=== PATIENT | male | born 1940 | race Caucasian/White ===

== ENCOUNTER 2016-09-18 06:42 | Day surgery (SDC) | payer MEDICARE, OTHER ==
[~2016-09-18] VITALS: Ht 167.6 cm; Wt 95.7 kg
[~2016-09-18 06:42] MED LIST: APLI5INJ2; ASPI-110 PO; B12-1CHW CHEW; BUME1TAB26 PO; CARV6.252 PO; ISOS30TA3 PO; LANS30CA PO; LANTINJ SQ; LEVO.05 PO; METO5TAB3 PO; MULT-135 PO; NOVOLOGSS SQ; OCEA0.653 EACH NARE; PLAV75TA29 PO; VITA100018 PO
[2016-09-18] MEDS ORDERED: SODIUM CHLORIDE 0.9% FLUSH 5 ML FLUSH IV FLUSH PRN (07:00)
[2016-09-18] MEDS ORDERED: DO NOT GIVE AM GLUCOPHAGE, GLUCOPHAGE XR, GLIPIZIDE, GLYBURIDE OR AVANDAMET XX PRN (07:00)
[2016-09-18] MEDS ORDERED: SODIUM BICARBONATE 100 MEQ in D5W 1000 ML IV SCH (07:00)
[2016-09-18 07:17] VITALS: BP 146/72; PULSE 56; RESP 18; TEMP 97.8; O2SAT 100
[2016-09-18] MEDS ORDERED: ROSU40 PO (07:31)
[2016-09-18] MEDS ORDERED: GARL1CAP PO (07:31)
[2016-09-18] MEDS ORDERED: VASO10TA8 PO (07:31)
[2016-09-18] MEDS ORDERED: AMAR4TAB PO (07:31)
[2016-09-18 07:33] LABS: AUTOMATED NEUTROPHIL # 4.4 TH/MM3 (1.8-7.7); BASOPHIL % 0.5 % (0.0-2.0); EOSINOPHIL # 0.5 TH/MM3 (0-0.4); EOSINOPHIL % 6.9 % (0.0-4.0); HEMATOCRIT 26.5 % (39.0-51.0); HEMO FLAGS DIFF FINAL; LYMPH % 18.4 % (9.0-44.0); LYMPHOCYTE # 1.3 TH/MM3 (1.0-4.8); MEAN CELL VOLUME 95.7 FL (80.0-100.0); MEAN CORPUSCULAR HEMOGLOBIN 33.4 PG (27.0-34.0); MEAN CORPUSCULAR HGB CONC 34.9 % (32.0-36.0); MONO % 12.9 % (0.0-8.0); NEUT % 61.3 % (16.0-70.0); PLATELET COUNT 232 TH/MM3 (150-450); RED BLOOD COUNT 2.77 MIL/MM3 (4.50-5.90); RED CELL DISTRIBUTION WIDTH 15.2 % (11.6-17.2); WHITE BLOOD COUNT 7.1 TH/MM3 (4.0-11.0)
[2016-09-18 07:43] LABS: APTT (PATIENT) 24.6 SEC (24.3-30.1); PROTHROMBIN TIME - PATIENT 10.7 SEC (9.8-11.6)
[2016-09-18 07:47] LABS: BICARBONATE 23.2 MEQ/L (21.0-32.0); POTASSIUM 4.2 MEQ/L (3.5-5.1)
[2016-09-18] MEDS ORDERED: HEPARIN-NS/PF INJ 500 ML ONE (08:42)
[2016-09-18] MEDS ORDERED: MIDAZOLAM HCL 5 MG/5 ML VIAL ONE (08:47)
[2016-09-18] MEDS ORDERED: HEPARIN SODIUM - IV 10,000 UNITS/10 ML VIAL ONE (08:52)
[2016-09-18] MEDS ORDERED: SODIUM CHLORIDE 0.9% FLUSH 5 ML FLUSH IV FLUSH SCH (09:00)
[2016-09-18] MEDS ORDERED: IOHEXOL 350 MG/ML 100 ML BTL (for Cath Lab) OTHER ONE (10:00)
--- NOTE | 2016-09-18 10:13 | PD.VS.PN ---
Subjective Subjective/Hospital Course 76 year old diabetic male with wound left lower extremity. Objective Vitals/I&O Date Time Temp Pulse Resp B/P Pulse Ox O2 Delivery O2 Flow Rate FiO2 09/18/16 07:17 97.8 56 18 146/72 100 09/18/16 09/18/16 09/18/16 07:00 15:00 23:00 Output Total 200 ml Balance -200 ml Laboratory Laboratory Tests Test 09/18/16 07:20 White Blood Count 7.1 Red Blood Count 2.77 Hemoglobin 9.3 Hematocrit 26.5 Mean Corpuscular Volume 95.7 Mean Corpuscular Hemoglobin 33.4 Mean Corpuscular Hemoglobin 34.9 Concent Red Cell Distribution Width 15.2 Platelet Count 232 Mean Platelet Volume 8.8 Neutrophils (%) (Auto) 61.3 Lymphocytes (%) (Auto) 18.4 Monocytes (%) (Auto) 12.9 Eosinophils (%) (Auto) 6.9 Basophils (%) (Auto) 0.5 Neutrophils # (Auto) 4.4 Lymphocytes # (Auto) 1.3 Monocytes # (Auto) 0.9 Eosinophils # (Auto) 0.5 Basophils # (Auto) 0.0 CBC Comment DIFF FINAL Differential Comment Prothrombin Time 10.7 Prothromb Time International 1.0 Ratio Activated Partial 24.6 Thromboplast Time Sodium Level 140 Potassium Level 4.2 Chloride Level 107 Carbon Dioxide Level 23.2 Anion Gap 10 Blood Urea Nitrogen 28 Creatinine 1.76 Estimat Glomerular Filtration 38 Rate Random Glucose 202 Calcium Level 8.5 Assessment and Plan Assessment: (1) Type 2 diabetes mellitus with diabetic peripheral angiopathy without gangrene Status: Chronic Plan 76 year old diabetic male with diabetic wound left lower extremity. Hx of right great toe amp healed with wound care and after percutaneous intervention. Left lower extremity angiogram - left sfa disease in area of [place] with high grade short segment popliteal artery lesion with main runoff via peroneal artery. Plan for vein mapping for possible fem below knee bypass. Royce De La Vega DO Sep 18, 2016 10:13
[2016-09-18] MEDS ORDERED: LORazepam 2 MG/ML VIAL IVP PRN (11:30)
[2016-09-18] MEDS ORDERED: SODIUM CHLORIDE 0.9% 1000 ML @ 75 ML/HR IV SCH (11:30)
[2016-09-18] MEDS ORDERED: SODIUM CHLOR 0.9% 250 ML IV PRN (11:30)
[2016-09-18] MEDS ORDERED: ONDANSETRON HCL 4 MG/2 ML VIAL IV PRN (11:30)
[2016-09-18] MEDS ORDERED: POTASSIUM CHLORIDE 20 MEQ CONTROLLED RELEASE TAB PO PRN (11:30)
[2016-09-18] MEDS ORDERED: SODIUM NITROPRUSSIDE 50 MG/250 ML D5W IV SCH ×2 (11:30)
[2016-09-18] MEDS ORDERED: cloNIDine HCL 0.1 MG TAB PO PRN (11:30)
[2016-09-18] MEDS ORDERED: ENALAPRILAT 1.25 MG/ML VIAL IV PRN (11:30)
[2016-09-18] MEDS ORDERED: METOCLOPRAMIDE HCL 10 MG/2 ML VIAL IVS PRN (11:30)
[2016-09-18] MEDS ORDERED: LIDOCAINE HCL 1% 50 ML VIAL INFIL PRN (11:30)
[2016-09-18] MEDS ORDERED: HOLD GLUCOPHAGE, GLUCOPHAGE XR, AND AVANDAMET XX PRN (11:30)
[2016-09-18] MEDS ORDERED: SODIUM CHLORIDE 5 ML FLUSH PRN IVF (11:30)
[2016-09-18] MEDS ORDERED: LABETALOL HCL 100 MG/20 ML VIAL IVP PRN (11:30)
[2016-09-18] MEDS ORDERED: oxyCODONE/ACETAMINOPHEN 5 MG/325 MG TAB PO PRN ×2 (11:30)
[2016-09-18] MEDS ORDERED: ATROPINE SULFATE 1 MG/ML VIAL IV PUSH PRN (11:30)
--- NOTE | 2016-09-18 12:43 | MA ---
cc: MEHRDAD ALFARO Cardiac Catheterization Laboratory DATE: 09/18/2016 PREOPERATIVE DIAGNOSIS Non-healing ulcer, left lower extremity. POSTOPERATIVE DIAGNOSIS Non-healing ulcer, left lower extremity. PROCEDURE 1. Aortogram and selective left lower extremity arteriogram. 2. Duplex ultrasound for access. DETAILS OF PROCEDURE The patient's right groin was prepped and draped in a sterile fashion after being under moderate sedation. I got access to the right common femoral artery using duplex ultrasound. I used a 21-gauge needle to do this and then exchanged for a 4-Mauritian micropuncture catheter. Then I exchanged for a 5-Mauritian sheath over a [employer] wire. I advanced my Omni Flush catheter over a Stiff Angle Glidewire to the abdominal aorta. I shot an AP aortogram then I pulled my catheter down into the distal abdominal aorta and shot pelvic oblique arteriograms. I then selected out the left external iliac artery and shot a selective left lower extremity arteriogram. After I finished shooting my left lower extremity arteriogram I advanced a wire through the catheter and pulled my catheter out over a wire. I then shot a sheathogram through the right groin. My findings were that the abdominal aorta was widely patent. The bilateral renal arteries were patent. The right common, internal and external iliac arteries were widely patent. The right common, femoral and profunda femoral arteries were patent. The right superficial femoral artery proximally was patent with minimal disease. Also, in the right common femoral artery there was some mild disease. The left common, internal and external iliac arteries were widely patent. The left common femoral artery had extensive calcification at the takeoff of the SFA and profunda. The left profunda femoral artery appeared to be widely patent. The left superficial femoral artery had calcification and had at least mild disease in the left SFA in the area of Tim's canal with areas of calcification. The left popliteal artery had multifocal disease and at the above-knee popliteal there was a severe stenosis at an area of eccentric calcification. The below knee popliteal appeared to be patent with minimal disease. The left anterior tibial artery occluded right after its takeoff. The patient had two-vessel runoff through the left peroneal and posterior tibial arteries, although the posterior tibial artery was smaller in diameter and distally was questionably open. The left peroneal artery reconstituted the dorsalis pedis artery in the foot. The medial and lateral plantar arteries were difficult to identify. So in summary, the patient had what appeared to be mild to moderate disease of the left superficial femoral artery and nearly occlusive versus chronic total occlusion of the left popliteal artery with the majority of the runoff through the left peroneal artery giving rise to the dorsalis pedis artery in the foot. DO RENÉ Sanchez /9:55 AM /12:28 PM
[2016-09-18] MEDS ORDERED: SODIUM CHLORIDE 5 ML FLUSH BID IVF SCH (21:00)
[2016-09-19] MEDS ORDERED: ASPIRIN EC 81 MG TABEC PO SCH (09:00)
[2016-10-11] MEDS ORDERED: POTA1TAB4 PO (12:58)
[2016-10-11] MEDS ORDERED: PLAV75TA29 PO (12:58)
[2016-11-08] MEDS ORDERED: AUGM500T7 PO (11:39)
[2016-11-22] MEDS ORDERED: PROC20005 SQ (11:27)
[2016-11-29] MEDS ORDERED: BACT800T5 PO (11:24)
[2016-12-20] MEDS ORDERED: AUGM875T PO (11:05)
[2016-12-20] MEDS ORDERED: BACT800T5 PO (11:05)
[2017-01-10] MEDS ORDERED: AUGM875T PO (11:31)
[2017-01-10] MEDS ORDERED: BACT800T5 PO (11:31)
== END 2016-09-18 14:58 | disposition home or self-care (01) ==
LOC: HDOC 06:42 → HDIC 06:46 → HDOC 14:58
PROVIDERS: ATTEND Surgery
DX: I73.9 Peripheral vascular disease, unspecified (principal); L97.929 Non-pressure chronic ulcer of unspecified part of left lower leg with unspecified severity; E11.51 Type 2 diabetes mellitus with diabetic peripheral angiopathy without gangrene; I25.10 Atherosclerotic heart disease of native coronary artery without angina pectoris; Z79.01 Long term (current) use of anticoagulants
CPT/HCPCS: 36200; 36246; 75625; 75710; 80048; 85025; 85610; 85730; C1769; C1893; J1644; J2250; J3010; J7070; Q9967

== ENCOUNTER 2016-10-12 08:03 | Day surgery (SDC) | payer MEDICARE, OTHER ==
[~2016-10-12] VITALS: Ht 170.2 cm; Wt 96.5 kg
[~2016-10-12 08:03] MED LIST changes: +AMAR4TAB PO; -APLI5INJ2; -B12-1CHW CHEW; +GARL1CAP PO; -METO5TAB3 PO; -OCEA0.653 EACH NARE; +POTA1TAB4 PO; +ROSU40 PO; -VITA100018 PO
[2016-10-12] MEDS ORDERED: HEPARIN SODIUM - SQ 10,000 UNITS/ML VIAL ONE (08:38)
[2016-10-12] MEDS ORDERED: ceFAZolin 2 GM PREMIX 50 ML ONE (08:39)
[2016-10-12] MEDS ORDERED: BUPIVACAINE/EPINEPHRINE 0.25% PF 30 ML VIAL ONE (08:40)
[2016-10-12 08:52] VITALS: BP 170/65; PULSE 56; RESP 16; TEMP 97.9; O2SAT 99
[2016-10-12 09:19] LABS: AUTOMATED NEUTROPHIL # 6.5 TH/MM3 (1.8-7.7); BASOPHIL % 0.5 % (0.0-2.0); EOSINOPHIL # 0.2 TH/MM3 (0-0.4); EOSINOPHIL % 1.8 % (0.0-4.0); HEMATOCRIT 25.3 % (39.0-51.0); HEMO FLAGS DIFF FINAL; LYMPH % 10.6 % (9.0-44.0); LYMPHOCYTE # 0.9 TH/MM3 (1.0-4.8); MEAN CELL VOLUME 94.8 FL (80.0-100.0); MEAN CORPUSCULAR HEMOGLOBIN 32.7 PG (27.0-34.0); MEAN CORPUSCULAR HGB CONC 34.5 % (32.0-36.0); MONO % 12.5 % (0.0-8.0); NEUT % 74.6 % (16.0-70.0); PLATELET COUNT 346 TH/MM3 (150-450); RED BLOOD COUNT 2.66 MIL/MM3 (4.50-5.90); RED CELL DISTRIBUTION WIDTH 15.7 % (11.6-17.2); WHITE BLOOD COUNT 8.7 TH/MM3 (4.0-11.0)
[2016-10-12] MEDS ORDERED: METOPROLOL TARTRATE 25 MG TAB PO PRN (10:15)
[2016-10-12] MEDS ORDERED: INSULIN HUMAN REGULAR 1,000 UNITS/10 ML VIAL SQ PRN (10:15)
[2016-10-12 10:53] LABS: BICARBONATE 23.1 MEQ/L (21.0-32.0); POTASSIUM 4.2 MEQ/L (3.5-5.1)
[2016-10-12] MEDS ORDERED: SODIUM CHLORID 0.9% 500 ML IV SCH (11:00)
[2016-10-12] MEDS ORDERED: LACTATED RINGER'S 1000 ML IV SCH (11:00)
[2016-10-12] MEDS ORDERED: HEPARIN SODIUM - IV 10,000 UNITS/10 ML VIAL ONE (11:07)
[2016-10-12] MEDS ORDERED: NITROGLYCERIN-DEXTROSE INJ 250 ML ONE (11:30)
[2016-10-12] MEDS ORDERED: ADENOSINE IV SOLN 3 MG/ML 2 ML VIAL ONE (11:58)
[2016-10-12] MEDS ORDERED: ONDANSETRON HCL 4 MG/2 ML VIAL IV PUSH ONE (12:00)
[2016-10-12] MEDS ORDERED: ePHEDrine/NS 25 MG/5 ML SYR IV ONE (12:00)
[2016-10-12] MEDS ORDERED: PROPOFOL 200 MG/20 ML AMP IV ONE (12:00)
[2016-10-12] MEDS ORDERED: LACTATED RINGER'S 1000 ML INJ 1,000 ML IV ONE (12:00)
[2016-10-12] MEDS ORDERED: SUGAMMADEX SODIUM 200 MG/2 ML VIAL IV PUSH ONE ×2 (13:27)
[2016-10-12] MEDS ORDERED: ALTEPLASE RECOMBINANT 2 MG VIAL OTHER ONE (13:29)
[2016-10-12] MEDS ORDERED: NITROGLYCERIN 50 MG/10 ML VIAL XX ONE (13:29)
[2016-10-12] MEDS ORDERED: IOHEXOL 300 MG/ML 50 ML BTL (for RAD DIAG) OTHER ONE (13:29)
[2016-10-12] MEDS ORDERED: [UNRECOGNIZED DRUG - MIXTURE] ONE (14:00)
[2016-10-12] MEDS ORDERED: MIDAZOLAM HCL 2 MG/2 ML VIAL ONE (14:16)
[2016-10-12] MEDS ORDERED: fentaNYL CITRATE 250 MCG/5 ML AMP ONE (14:17)
[2016-10-12] MEDS ORDERED: SODIUM CHLORIDE 0.9% FLUSH 5 ML FLUSH IV FLUSH PRN (15:30)
[2016-10-12] MEDS ORDERED: ONDANSETRON HCL 4 MG/2 ML VIAL IV PUSH PRN (15:30)
[2016-10-12] MEDS ORDERED: ACETAMINOPHEN/HYDROcodone 325 MG/5 MG TAB PO PRN (15:30)
[2016-10-12] MEDS ORDERED: MORPHINE SULFATE 4 MG/ML INJ IV PRN (15:30)
--- NOTE | 2016-10-12 15:35 | MA ---
cc: MEHRDAD ALFARO DATE: 10/12/2016 PREOPERATIVE DIAGNOSIS Critical limb ischemia, left lower extremity. POSTOPERATIVE DIAGNOSIS Critical limb ischemia, left lower extremity. PROCEDURE 1. Selective left lower extremity arteriogram. 2. Atherectomy and balloon angioplasty left superficial femoral artery and popliteal artery with a 2.0 solid CSI atherectomy device and an 5 x 200 Medtronic angioplasty balloon of the left SFA and popliteal. 3. Balloon angioplasty with a 3 x 40 angioplasty balloon of the left proximal peroneal artery. SURGEON Yolette IV FLUIDS More than one liter. ESTIMATED BLOOD LOSS Minimal. URINE OUTPUT 500 cc. COMPLICATIONS None. DISPOSITION To PACU. ANESTHESIA General. DETAILS OF PROCEDURE The patient's was prepped and draped from xiphoid process to the toes bilaterally. I got access to the right common femoral artery using duplex ultrasound with a 21-gauge needle. I exchanged for a 4-British micropuncture catheter then a 4-British catheter, and then exchanged over a stiff angled Glidewire for a Omni Flush catheter which I directed to the left common iliac artery. I then and advanced my wire down to the SFA and exchanged for a 6-British, 45 cm Destination sheath. I then shot a selective left lower extremity arteriogram. I also used IVUS in order to appropriately identify the diameter of the left popliteal artery which was just short of 5 mm. I did cross the left popliteal artery with a Quick-Cross catheter and a stiff angled Glidewire. IVUS showed that this area was almost completely occlusive. My findings were that the left superficial femoral artery proximally appeared to be patent. The left distal SFA and Tim's canal had eccentric calcifications with at least moderate stenoses. The left popliteal artery had a high-grade stenosis at the level of the knee with a mild to moderate stenosis just distal to this with essentially a single-vessel runoff through the peroneal artery that gave rise to the dorsalis pedis artery. I did heparinize the patient to an ACT of greater than 300. I then performed atherectomy with two passes at the low and high speeds with the CSI atherectomy device. I did use nitroglycerin and adenosine as needed as I did my atherectomy over a Viper wire. After performing atherectomy I used a 5 x 200 balloon angioplasty and then afterwards there was still some sluggish flow. I was unsure if this was a problem with the lesion itself or outflow. I did use nitroglycerin and adenosine and approximately 6 mg of TPA total during the procedure. There was what appeared to be flow-limiting lesion of the proximal peroneal artery. I performed a balloon angioplasty with a 3 mm x 4 cm balloon. Afterwards there was good flow distal to this and this eccentric lesion was gone. I then performed another balloon angioplasty with a 5 mm x 4 cm balloon just to the level of the popliteal artery where there appeared to be possibly a flow-limiting dissection flap. After I did this, this was no longer flow-limiting and there was good flow across the level of the popliteal artery. It should be noted that at the end of the case there was good blood flow across the level of the ankle through the dorsalis pedis artery. It should be noted that the distal peroneal artery as prior to the procedure had a chronic total occlusion and fed collaterally distally. So in summary the patient had a high-grade stenosis of the left popliteal artery and multiple areas of the SFA that were treated with atherectomy and balloon angioplasty. The patient also had a moderate to severe calcified lesion of the proximal peroneal artery that was treated with balloon angioplasty as well. DO RENÉ Sanchez /3:04 PM /3:17 PM
[2016-10-12 16:21] VITALS: BP 154/70; PULSE 59; RESP 16; TEMP 97.6; O2SAT 97
[2016-10-12] MEDS ORDERED: SODIUM CHLORIDE 0.9% FLUSH 5 ML FLUSH IV FLUSH SCH (21:00)
[2016-11-08] MEDS ORDERED: AUGM500T7 PO (11:39)
[2016-11-22] MEDS ORDERED: PROC20005 SQ (11:27)
[2016-11-29] MEDS ORDERED: BACT800T5 PO (11:24)
[2016-12-20] MEDS ORDERED: BACT800T5 PO (11:05)
[2016-12-20] MEDS ORDERED: AUGM875T PO (11:05)
[2017-01-10] MEDS ORDERED: BACT800T5 PO (11:31)
[2017-01-10] MEDS ORDERED: AUGM875T PO (11:31)
== END 2016-10-12 17:00 | disposition home or self-care (01) ==
LOC: HSDC 08:03
PROVIDERS: ATTEND Surgery
DX: I70.212 Atherosclerosis of native arteries of extremities with intermittent claudication, left leg (principal); I25.10 Atherosclerotic heart disease of native coronary artery without angina pectoris; I10 Essential (primary) hypertension; E78.5 Hyperlipidemia, unspecified; E11.9 Type 2 diabetes mellitus without complications; Z95.1 Presence of aortocoronary bypass graft; Z79.4 Long term (current) use of insulin
CPT/HCPCS: 01270; 37227; 37228; 75630; 80048; 82948; 85025; C1725; C1769; C1887; J0153; J0690; J1644; J2250; J2405; J2997; J3010; J7120; Q9967

== ENCOUNTER 2016-11-01 12:57 | Inpatient (IN) | payer MEDICARE, OTHER ==
[~2016-11-01] VITALS: Ht 170.2 cm; Wt 98.3 kg
[2016-11-01 13:00] VITALS: BP 126/58; PULSE 66; RESP 16; TEMP 98.1; O2SAT 98
--- NOTE | 2016-11-01 15:57 | PD ---
HPI Chief Complaint: Skin Problem Time Seen by Provider: 15:57 Travel History International Travel<30 days: No Contact w/Intl Traveler<30days: No Traveled to known affect area: No History of Present Illness HPI 76-year-old male with history of diabetes, CAD, CABG 3, hypertension, CKD, PAD , chronic foot wounds, presents to emergency department for evaluation and admission per Dr. Bang, inspector fibrous wallboard. Patient has been being followed by wound clinic for a wound to his left foot for "several months." It has worsened and is very painful for the patient. There is a malodorous drainage from it. Per Dr. Bang note, the patient is to be admitted [facility]. He requests lab work and radiographs of left foot. The plan is for surgical excision of the first metatarsal bone versus amputation of the left hallux. Patient states besides the pain in his foot he has been feeling "okay." Denies fever or chills. No chest pain or tightness. No nausea, vomiting , or diarrhea. No other symptoms to report. PFSH Past Medical History Hx Anticoagulant Therapy: Yes Arthritis: Yes (FINGERS) Autoimmune Disease: No Cancer: No Cardiovascular Problems: Yes (CABG X3 2009) High Cholesterol: Yes Chest Pain: No Cerebrovascular Accident: No Diabetes: Yes Endocrine: No Gastrointestinal Disorders: No Glaucoma: No Genitourinary: No Hepatitis: No Hiatal Hernia: No Hypertension: Yes Immune Disorder: No Kidney Stones: Yes Musculoskeletal: Yes (ARTHRITIS) Neurologic: No Psychiatric: No Reproductive: No Respiratory: No Integumentary: Yes Migraines: No Renal Failure: Yes (chronic) Seizures: No Sickle Cell Disease: No Thyroid Disease: Yes Past Surgical History AICD: No Arteriovenous Shunt: No Cardiac Surgery: Yes (CABG X3) Eye Surgery: Yes (CATARACT RIGHT EYE) Insulin Pump: No Joint Replacement: No Pacemaker: No Thoracic Surgery: Yes Tonsillectomy: Yes Other Surgery: Yes (r carpal tunnel) Social History Alcohol Use: Yes (occ) Tobacco Use: No Substance Use: No Allergies-Medications (Allergen,Severity, Reaction): Coded Allergies: No Known Allergies (Unverified , 11/01/16) Reported Meds & Prescriptions Reported Meds & Active Scripts Active Bumex (Bumetanide) 1 Mg Tab 1 Mg PO DAILY Reported K-Tab (Potassium Chloride) 20 Meq Tab 20 Meq PO DAILY Plavix (Clopidogrel Bisulfate) 75 Mg Tab 75 Mg PO DAILY Garlic 1,000 Mg Cap 1,000 Mg PO DAILY Amaryl (Glimepiride) 4 Mg Tab 4 Mg PO DAILY Take with breakfast or first main meal Crestor (Rosuvastatin Calcium) 40 Mg Tab 40 Mg PO DAILY Isosorbide Mononitrate ER (Isosorbide Mononitrate) 30 Mg Kimo 30 Mg PO DAILY Aspirin 81 (Aspirin) 81 Mg Tabdr 81 Mg PO DAILY Carvedilol 6.25 Mg Tab 6.25 Mg PO BID Lantus Solostar Pen Inj (Insulin Glargine) 300 Unit/3 Ml Pen 25 Units SQ HS Multi Vitamin (Multiple Vitamin) 1 Tab Tab 1 Tab PO DAILY Novolog Inj (Insulin Aspart) 100 Unit/Ml Inj 7 Units SQ TID Synthroid (Levothyroxine Sodium) 50 Mcg Tab 50 Mcg PO DAILY Lansoprazole 30 Mg Capdr 30 Mg PO DAILY Review of Systems Except as stated in HPI: all other systems reviewed are Neg Physical Exam Narrative GENERAL: Chronically ill, but well nourished elderly male pt sitting in the stretcher in no acute distress. SKIN: Warm and dry.3cm in diameter wound on the medial LEFT hallux with necrotic tissue and malodorous purulent drainage. There is a 1 cm in diameter wound on the lateral right foot. There is also purulent drainage from this. Patient has right great toe amputation. HEAD: Atraumatic. Normocephalic. EYES: Pupils equal and round. No scleral icterus. No injection or drainage. ENT: No nasal bleeding or discharge. Mucous membranes pink and moist. NECK: Trachea midline. No JVD. CARDIOVASCULAR: Regular rate and rhythm. RESPIRATORY: No accessory muscle use. Diminished to auscultation. Breath sounds equal bilaterally. GASTROINTESTINAL: Abdomen soft, non-tender, nondistended. Hepatic and splenic margins not palpable. MUSCULOSKELETAL: Extremities without clubbing, cyanosis, or edema. Distal pulses are dopplerable. Bilateral feet are warm. NEUROLOGICAL: Awake and alert. No obvious cranial nerve deficits. Motor grossly within normal limits. Five out of 5 muscle strength in the arms and legs. Normal speech. PSYCHIATRIC: Appropriate mood and affect; insight and judgment normal. Data Data Last Documented VS Vital Signs Date Time Temp Pulse Resp B/P Pulse Ox O2 Delivery O2 Flow Rate FiO2 11/01/16 16:30 72 18 198/86 97 Room Air 11/01/16 13:00 98.1 Orders Electrocardiogram (11/01/16 15:57) Complete Blood Count With Diff (11/01/16 15:57) Comprehensive Metabolic Panel (11/01/16 15:57) Prothrombin Time / Inr (Pt) (11/01/16 15:57) Act Partial Throm Time (Ptt) (11/01/16 15:57) Urinalysis - C+S If Indicated (11/01/16 15:57) Blood Culture (11/01/16 15:57) Chest, Single Ap (11/01/16 15:57) Blood Glucose (11/01/16 15:57) Ecg Monitoring (11/01/16 15:57) Iv Access Insert/Monitor (11/01/16 15:57) Oximetry (11/01/16 15:57) Oxygen Administration (11/01/16 15:57) Foot, Complete ([id number]) (11/01/16 ) Wound Culture And Gram Stain (11/01/16 16:34) Urine Culture (11/01/16 16:35) Labs Laboratory Tests Test 11/01/16 16:35 White Blood Count 11.5 TH/MM3 Red Blood Count 2.96 MIL/MM3 Hemoglobin 9.0 GM/DL Hematocrit 27.6 % Mean Corpuscular Volume 93.5 FL Mean Corpuscular Hemoglobin 30.5 PG Mean Corpuscular Hemoglobin 32.7 % Concent Red Cell Distribution Width 16.0 % Platelet Count 477 TH/MM3 Mean Platelet Volume 8.4 FL Neutrophils (%) (Auto) 72.1 % Lymphocytes (%) (Auto) 13.8 % Monocytes (%) (Auto) 11.8 % Eosinophils (%) (Auto) 1.8 % Basophils (%) (Auto) 0.5 % Neutrophils # (Auto) 8.3 TH/MM3 Lymphocytes # (Auto) 1.6 TH/MM3 Monocytes # (Auto) 1.4 TH/MM3 Eosinophils # (Auto) 0.2 TH/MM3 Basophils # (Auto) 0.1 TH/MM3 CBC Comment DIFF FINAL Differential Comment Prothrombin Time 11.3 SEC Prothromb Time International 1.0 RATIO Ratio Activated Partial 28.4 SEC Thromboplast Time Urine Color YELLOW Urine Turbidity CLEAR Urine pH 6.0 Urine Specific Frost 1.017 Urine Protein 30 mg/dL Urine Glucose (UA) NEG mg/dL Urine Ketones NEG mg/dL Urine Occult Blood MOD Urine Nitrite NEG Urine Bilirubin NEG Urine Urobilinogen LESS THAN 2.0 MG/DL Urine Leukocyte Esterase SMALL Urine RBC 142 /hpf Urine WBC 20 /hpf Urine Squamous Epithelial <1 /hpf Cells Urine Bacteria OCC /hpf Urine Mucus FEW /lpf Microscopic Urinalysis Comment CATH-CULTURE IND Sodium Level 139 MEQ/L Potassium Level 4.5 MEQ/L Chloride Level 107 MEQ/L Carbon Dioxide Level 25.5 MEQ/L Anion Gap 7 MEQ/L Blood Urea Nitrogen 22 MG/DL Creatinine 1.84 MG/DL Estimat Glomerular Filtration 36 ML/MIN Rate Random Glucose 136 MG/DL Calcium Level 9.4 MG/DL Total Bilirubin 0.3 MG/DL Aspartate Amino Transf 12 U/L (AST/SGOT) Alanine Aminotransferase 16 U/L (ALT/SGPT) Alkaline Phosphatase 159 U/L Total Protein 7.7 GM/DL Albumin 2.7 GM/DL MDM Medical Decision Making Medical Screen Exam Complete: Yes Emergency Medical Condition: Yes Medical Record Reviewed: Yes Differential Diagnosis Infected wound versus necrotic wound versus osteomyelitis versus sepsis Narrative Course 76-year-old male presents to emergency department at the instruction of Dr. Bang. Labs per Dr. Bang's notes are ordered. X-ray imaging of the left foot is also ordered. Last Impressions Chest X-Ray 11/01/16 1557 Signed Impressions: Service Date/Time: October 16:20 - CONCLUSION: 1. No active disease. Minimal basilar scarring and atelectasis. Donald Sanderson MD Foot X-Ray 11/01/16 0000 Signed Impressions: Service Date/Time: October 16:20 - CONCLUSION: 1. Abnormal distal first metatarsal and proximal phalanx of the first digit with under mineralization and areas of lucency. Although nonspecific osteomyelitis could have this appearance. 2. There is dislocation versus subluxation at the first MTP joint. There is questionable fracture involving the proximal aspect of the proximal phalanx of the first digit. 3. Diffuse left foot soft tissue swelling. Small vessel arterial vascular calcification in a pattern typically seen in diabetic patients. Van Hartley MD I spoke with Dr. Gutierrez. He requests pt be given unasyn and vancomycin here in the ED with admission to Dr. Dunlap. A consult has also been placed for Dr. Bang and wound care. Diagnosis Primary Impression: Osteomyelitis of left foot Qualified Code: M86.9 - Osteomyelitis of left foot, unspecified type Additional Impressions: Ischemic ulcer diabetic foot CAD (coronary artery disease) Qualified Code: I25.10 - Coronary artery disease involving [place] heart without angina pectoris, unspecified vessel or lesion type HTN (hypertension) Qualified Code: I10 - Essential hypertension Diabetes Qualified Code: E11.59 - Type 2 diabetes mellitus with other circulatory complication, with long-term current use of insulin Admitting Information Admitting Physician Requests: Admit Condition: Stable NiceEdith buck MARIA TERESA Nov 01, 2016 15:57
[2016-11-01 16:29] VITALS: O2SAT 97
[2016-11-01 16:30] VITALS: BP 198/86; PULSE 72; RESP 18; O2SAT 97
--- NOTE | 2016-11-01 16:32 | PD ---
Data Data Last Documented VS Vital Signs Date Time Temp Pulse Resp B/P Pulse Ox O2 Delivery O2 Flow Rate FiO2 11/01/16 16:29 97 Room Air 11/01/16 13:00 98.1 66 16 126/58 Orders Electrocardiogram (11/01/16 15:57) Complete Blood Count With Diff (11/01/16 15:57) Comprehensive Metabolic Panel (11/01/16 15:57) Prothrombin Time / Inr (Pt) (11/01/16 15:57) Act Partial Throm Time (Ptt) (11/01/16 15:57) Urinalysis - C+S If Indicated (11/01/16 15:57) Blood Culture (11/01/16 15:57) Chest, Single Ap (11/01/16 15:57) Blood Glucose (11/01/16 15:57) Ecg Monitoring (11/01/16 15:57) Iv Access Insert/Monitor (11/01/16 15:57) Oximetry (11/01/16 15:57) Oxygen Administration (11/01/16 15:57) Foot, Complete ([id number]) (11/01/16 ) MDM Supervised Visit with SANDEE: Yes Narrative Course I, Dr. Barnett, have reviewed the advance practice practitioner's documentation and am in agreement, met with the patient face to face, made the diagnosis, and the medical decision making was done by me. *My assessment and Findings: Patient has a gangrenous appearing left foot ulcer Claudette Barnett MD Nov 01, 2016 16:32
--- NOTE | 2016-11-01 17:04 | RADRPT ---
EXAM DATE/TIME: 11/01/2016 16:20 [facility] COMPARISON: No previous studies available for comparison. INDICATIONS : Left foot chronic pain. MEDICAL HISTORY : Hypertension. Diabetes mellitus type II. SURGICAL HISTORY : CABG. ENCOUNTER: Initial ACUITY: 1 day PAIN SCORE: 5/10 LOCATION: Left foot FINDINGS: 3 views of the left foot demonstrate diffusely undermineralized bones. The bones of the first metatar rinku and first digit are particularly undermineralized. The first metatarsophalangeal joint is abnorma l with subluxation versus dislocation present and there is likely a fracture of the proximal aspect o f the proximal lateral phalanx. A there is soft tissue swelling of the first digit. Overlying bandage is adjacent to the first MTP joint. There is a diffuse soft tissue swelling of the foot is most morgan re on the dorsal aspect. Severe small vessel arterial vascular calcification is present. CONCLUSION: 1. Abnormal distal first metatarsal and proximal phalanx of the first digit with under mineralization and areas of lucency. Although nonspecific osteomyelitis could have this appearance. 2. There is dislocation versus subluxation at the first MTP joint. There is questionable fracture inv olving the proximal aspect of the proximal phalanx of the first digit. 3. Diffuse left foot soft tissue swelling. Small vessel arterial vascular calcification in a pattern typically seen in diabetic patients. Van Hartley MD on November 01, 2016 at 17:00 Board Certified Radiologist. This report was verified electronically.
[2016-11-01 17:06] LABS: AUTOMATED NEUTROPHIL # 8.3 TH/MM3 (1.8-7.7); BASOPHIL # 0.1 TH/MM3 (0-0.2); BASOPHIL % 0.5 % (0.0-2.0); EOSINOPHIL # 0.2 TH/MM3 (0-0.4); EOSINOPHIL % 1.8 % (0.0-4.0); HEMATOCRIT 27.6 % (39.0-51.0); HEMO FLAGS DIFF FINAL; LYMPH % 13.8 % (9.0-44.0); LYMPHOCYTE # 1.6 TH/MM3 (1.0-4.8); MEAN CELL VOLUME 93.5 FL (80.0-100.0); MEAN CORPUSCULAR HEMOGLOBIN 30.5 PG (27.0-34.0); MEAN CORPUSCULAR HGB CONC 32.7 % (32.0-36.0); MONO % 11.8 % (0.0-8.0); NEUT % 72.1 % (16.0-70.0); PLATELET COUNT 477 TH/MM3 (150-450); RED BLOOD COUNT 2.96 MIL/MM3 (4.50-5.90); WHITE BLOOD COUNT 11.5 TH/MM3 (4.0-11.0)
--- NOTE | 2016-11-01 17:06 | RADRPT ---
EXAM DATE/TIME: 11/01/2016 16:20 [facility] COMPARISON: CHEST SINGLE AP, July 12, 2016, 12:37. INDICATIONS : Pre OP. MEDICAL HISTORY : Hypertension. Diabetes mellitus type II. SURGICAL HISTORY : CABG. ENCOUNTER: Initial ACUITY: 1 day PAIN SCORE: 0/10 LOCATION: Bilateral chest FINDINGS: A single view of the chest demonstrates mild basilar opacity, probably dependent atelectasis and mild fibrotic change. Postop median sternotomy. Mild cardiomegaly. Tortuous aorta. CONCLUSION: 1. No active disease. Minimal basilar scarring and atelectasis. Donald Sanderson MD on November 01, 2016 at 17:04 Board Certified Radiologist. This report was verified electronically.
[2016-11-01 17:16] LABS: BACTERIA, URINE OCC /hpf; BLOOD, URINE MOD (NEG); COMMENT (UR) CATH-CULTURE IND; CULTURE IF INDICATED CATH CULTURE IND; GLUCOSE,URINE NEG (NEG); KETONE, URINE NEG (NEG); MUCUS URINE FEW /lpf (OCC); NITRITE,URINE NEG (NEG); SQUAMOUS EPITHELIAL CELL URINE <1 /hpf (0-5); URINE COLOR YELLOW (YELLW/STRAW)
[2016-11-01 17:22] LABS: APTT (PATIENT) 28.4 SEC (24.3-30.1); PROTHROMBIN TIME - PATIENT 11.3 SEC (9.8-11.6)
[2016-11-01 17:25] LABS: ANION GAP 7 MEQ/L (5-15); AST (GOT) 12 U/L (15-37); BICARBONATE 25.5 MEQ/L (21.0-32.0); BLOOD UREA NITROGEN 22 MG/DL (7-18); CHLORIDE 107 MEQ/L (98-107); GLOMERULAR FILTRATION RATE 36 ML/MIN (>89); POTASSIUM 4.5 MEQ/L (3.5-5.1); SODIUM (NA) 139 MEQ/L (136-145)
[2016-11-01 17:29] LABS: ALKALINE PHOSPHATASE 159 U/L (45-117); ALT (GPT) 16 U/L (12-78); TOTAL BILIRUBIN ADULT 0.3 MG/DL (0.2-1.0)
[2016-11-01] MEDS ORDERED: VANCOMYCIN INJ 1,000 MG in SODIUM CHLOR 0.9% 250 ML INJ 250 ML IV ONE (17:45)
[2016-11-01] MEDS ORDERED: AMPICILLIN-SULBACTAM INJ 1,500 MG in SODIUM CHLORIDE 0.9% INJ 100 ML IV ONE (17:45)
[2016-11-01 19:42] VITALS: BP 209/81; PULSE 77; RESP 18; O2SAT 96
[2016-11-01] MEDS ORDERED: GLUCAGON 1 MG/ML VIAL OTHER PRN (20:15)
[2016-11-01] MEDS ORDERED: ENALAPRILAT 1.25 MG/ML VIAL IV PUSH PRN (20:15)
[2016-11-01] MEDS ORDERED: Vancomycin Consult Pharmacy 1 EA OTHER SCH (20:15)
[2016-11-01] MEDS ORDERED: PILL SPLITTER OTHER PRN (20:30)
[2016-11-01] MEDS ORDERED: VANCOMYCIN 1,000 MG/NS 250 ML IV ONE ×2 (21:00)
[2016-11-01] MEDS: INSULIN ASPART SUPPLEMENTAL SCALE SQ SCH (21:00)
[2016-11-01] MEDS: CARVEDILOL 6.25 MG TAB PO SCH (21:23)
[2016-11-01] MEDS: ATORVASTATIN 40 MG TAB PO SCH (21:23)
[2016-11-01] MEDS: ENOXAPARIN SODIUM 40 MG/0.4 ML SYRINGE SQ SCH (21:30)
[2016-11-01] MEDS: INSULIN DETEMIR 100 UNITS/ML VIAL SQ SCH (21:30)
[2016-11-01] MEDS: FAMOTIDINE 20 MG TAB PO SCH (21:30)
[2016-11-01] MEDS: PIPERACIL-TAZO 2.25 GM PREMIX 50 ML IV SCH (22:55)
[2016-11-02 02:00] VITALS: BP 158/67; PULSE 76; RESP 16; O2SAT 97
[2016-11-02] MEDS: PIPERACIL-TAZO 2.25 GM PREMIX 50 ML IV SCH ×4 (04:39→21:27)
[2016-11-02] MEDS: LEVOTHYROXINE SODIUM 50 MCG TAB PO SCH (06:04)
[2016-11-02 06:17] LABS: MEAN CELL VOLUME 93.2 FL (80.0-100.0); MEAN CORPUSCULAR HEMOGLOBIN 30.2 PG (27.0-34.0); MEAN CORPUSCULAR HGB CONC 32.4 % (32.0-36.0); PLATELET COUNT 419 TH/MM3 (150-450); RED BLOOD COUNT 2.68 MIL/MM3 (4.50-5.90); RED CELL DISTRIBUTION WIDTH 16.1 % (11.6-17.2); REVIEW FLAG FINAL; WHITE BLOOD COUNT 11.2 TH/MM3 (4.0-11.0)
[2016-11-02 06:46] LABS: BICARBONATE 24.2 MEQ/L (21.0-32.0); POTASSIUM 4.2 MEQ/L (3.5-5.1)
[2016-11-02] MEDS: INSULIN ASPART SUPPLEMENTAL SCALE SQ SCH ×7 (07:00→21:00)
[2016-11-02 08:00] VITALS: BP 173/77; PULSE 86; RESP 17; TEMP 98.4; O2SAT 98
[2016-11-02] MEDS: GLIMEPIRIDE 4 MG TAB PO SCH (08:32)
[2016-11-02] MEDS: CARVEDILOL 6.25 MG TAB PO SCH ×2 (08:32→21:28)
[2016-11-02] MEDS: ISOSORBIDE MONONITRATE 30 MG TAB PO SCH (08:32)
[2016-11-02] MEDS: FAMOTIDINE 20 MG TAB PO SCH ×2 (08:42→21:28)
[2016-11-02] MEDS ORDERED: CLOPIDOGREL 75 MG TAB PO SCH (09:00)
[2016-11-02] MEDS ORDERED: ASPIRIN EC 81 MG TABEC PO SCH (09:00)
[2016-11-02] MEDS ORDERED: ceFAZolin 2 GM PREMIX 50 ML IV SCH (10:00)
--- NOTE | 2016-11-02 10:01 | PD.WOU.CON ---
Patient Intake Chief Complaint Osteomyelitis left first MPJ Consult [facility] by [facility] Reason for Consult Evaluation and treatment of osteomyelitis first MPJ left foot Primary Care Physician Arturo Bagley MD History of Present Illness Patient is a 76-year-old diabetic male who I see in the wound center here at [facility]. Patient had severe peripheral vascular disease and underwent endovascular intervention recently on the left lower extremity with improved blood flow. Patient has exposed bone at the first metatarsal phalangeal joint and radiographs show destruction of the joint. Patient was admitted for amputation of the left hallux. He understands the course of the planned procedures and wishes to proceed. Coded Allergies: No Known Allergies (Unverified , 11/01/16) Preferred Language to Discuss: Moldovan Barriers to Learning: None Teaching Method: Discussion Vital Signs Date Time Temp Pulse Resp B/P Pulse Ox O2 Delivery O2 Flow Rate FiO2 11/02/16 08:00 98.4 86 17 173/77 98 Room Air 11/02/16 02:00 76 16 158/67 97 Room Air 11/01/16 19:42 77 18 209/81 96 Room Air 11/01/16 16:30 72 18 198/86 97 Room Air 11/01/16 16:29 97 Room Air 11/01/16 16:29 97 Room Air 11/01/16 13:00 98.1 66 16 126/58 98 Pain scale used: 0-10 numeric scale Pain score: 1 Medications Current Medications Ampicillin Sodium/ Sulbactam Sodium 1500 mg/Sodium Chloride 100 ml @ 200 mls/ hr ONCE ONCE IV Last administered on 11/01/16 19:39; Start 11/01/16 at 17:45; Stop 11/01/16 at 18:14; Status DC Vancomycin HCl/ Sodium Chloride (Vancomycin Inj/ NS 250 ml Inj) 250 ml @ 250 mls/hr ONCE ONCE IV Last administered on 11/01/16 17:48; Start 11/01/16 at 17: 45; Stop 11/01/16 at 18:44; Status DC Aspirin (Ecotrin Ec) 81 mg DAILY PO ; Start 11/02/16 at 09:00 Carvedilol (Coreg) 6.25 mg BID PO Last administered on 11/02/16 08:32; Start 11/01/16 at 21:00 Clopidogrel Bisulfate (Plavix) 75 mg DAILY PO ; Start 11/02/16 at 09:00 Glimepiride (Amaryl) 4 mg DAILYAC PO Last administered on 11/02/16 08:32; Start 11/02/16 at 08:00 Insulin Aspart (NovoLOG SUPPLEMENTAL SCALE) 7 TIDAC SQ ; Start 11/02/16 at 08:00 Isosorbide Mononitrate (Imdur) 30 mg DAILY PO Last administered on 11/02/16 08 :32; Start 11/02/16 at 09:00 Levothyroxine Sodium (Synthroid) 50 mcg DAILY@06 PO Last administered on 06:04; Start 11/02/16 at 06:00 Insulin Detemir (Levemir Inj) 25 units HS SQ Last administered on 11/01/16 21: 30; Start 11/01/16 at 21:00 Atorvastatin Calcium 80 mg 80 mg HS PO Last administered on 11/01/16 21:23; Start 11/01/16 at 21:00 Piperacillin Sod/ Tazobactam Sod 50 ml @ 100 mls/hr Q6H IV Last administered on 11/02/16 08:32; Start 11/01/16 at 21:00 Pharmacy Profile Note (Vancomycin Consult Pharmacy) 0 ml @ 0 mls/hr UNSCH OTHER ; Start 11/01/16 at 20:15 Enalaprilat (Vasotec Inj) 2.5 mg Q6H PRN IV PUSH SBP >170; Start 11/01/16 at 20 :15 Dextrose (D50w (Vial) Inj) 25 ml UNSCH PRN IV PUSH HYPOGLYCEMIA-SEE COMMENTS; Start 11/01/16 at 20:15 Glucagon (Glucagon Inj) 1 mg UNSCH PRN OTHER HYPOGLYCEMIA-SEE COMMENTS; Start 11/01/16 at 20:15 Insulin Aspart (NovoLOG SUPPLEMENTAL SCALE) 1 ACHS SLIDING SCALE SQ ; Start 11/01/16 at 21:00 Famotidine (Pepcid) 10 mg BID PO Last administered on 11/02/16 08:42; Start at 21:00 Enoxaparin Sodium 40 mg 40 mg Q24H SQ Last administered on 11/01/16 21:30; Start 11/01/16 at 21:00 Vancomycin HCl/ Sodium Chloride (Vancomycin Inj/ NS 250 ml Inj) 250 ml @ 250 mls/hr ONCE ONCE IV Last administered on 11/01/16t 21:23; Start 11/01/16 at 21: 00; Stop 11/01/16 at 21:59; Status DC Miscellaneous 1 ea 1 ea UNSCH PRN OTHER SEE LABEL COMMENTS; Start 11/01/16 at 20 :30 Vancomycin HCl/ Sodium Chloride (Vancomycin Inj/ NS 500 ml Inj) 515 ml @ 257.5 mls/ hr Q24H IV ; Start 11/02/16 at 15:00 Miscellaneous Information SPECIFIC LAB TO BE ... ONCE ONCE XX ; Start at 14:45; Stop 11/04/16 at 14:46 Past, Family & Social History Past Medical History HEENT: REPORTS HX OF: Cataracts Endocrine: REPORTS HX OF: Diabetes mellitus, Hyperthyroidism Cardiovascular: REPORTS HX OF: Coronary artery disease, Heart failure, Hyperlipidemia, Hypertension, Peripheral vascular dz Genitourinary: REPORTS HX OF: Kidney disease, Kidney failure Musculoskeletal: REPORTS HX OF: Osteoarthritis Infectious disease: REPORTS HX OF: Chickenpox (had as a child), Measles (had as a child), Mumps (had as a child) Neurologic: REPORTS HX OF: Peripheral neuropathy Disabilities: REPORTS HX OF: Hearing deficit, Vision deficit Past Surgical History HEENT: REPORTS HX OF: Cataract extraction, Dental surgery (upper dentures and partial on the bottom), Tonsillectomy Cardiovascular: REPORTS HX OF: Angiogram, Angioplasty, CABG surgery Musculoskeletal: REPORTS HX OF: Other musculoskeletal srg (partial amputation second and third toes right foot, amputation right hallu) Family Medical History Patient History: Alcohol abuse G8 BROTHER, Onset:Unknown ( at 60) Carcinomas G8 MOTHER, Onset:40's - 50 Substance Use Substance use: Denies use Review of Systems Cardiovascular: COMPLAINS OF: Swelling legs / ankles Musculoskeletal: COMPLAINS OF: Deformaties Neurological: COMPLAINS OF: Numbness/tingling, Changes in sensation Wound Assessment Vascular Assessment R Dorsails Pedis: Doppler L Dorsails Pedis: Doppler R Posterior Tibial: Doppler L Posterior Tibial: Doppler Sensation of Left Extremity: Diminished Sensation of Right Extremity: Diminished Wound Information - Wound One Wound Location: right lateral fifth metatarsal Wound Type: Diabetic Ulcer Classification: FT- full thickness Exudate: Low Debridement: No Fibrin Amount: Mild Granulation Tissue Color: [place] Granulation Tissue Texture: Firm Exposed: No exposed bone, muscle, tendon Eschar: No Odor: No Periwound Appearance: FINDINGS: Normal Wound Two Wound Location: Left medial foot first met head medial aspect Wound Type: Ischemic Classification: Bone/Tendon Present Exudate: Low Exudate Type: Serosanguineous Debridement: No Fibrin Amount: None Granulation Tissue Color: None Granulation Tissue Texture: N/A Exposed: Bone Eschar: Yes Odor: No Periwound Appearance: FINDINGS: Normal Wound Three Wound Location: Right great toe - amputation site- Medial Lab and Radiology Results Laboratory Laboratory Tests Test 11/01/16 11/02/16 16:35 05:27 White Blood Count 11.5 TH/MM3 11.2 TH/MM3 Red Blood Count 2.96 MIL/MM3 2.68 MIL/MM3 Hemoglobin 9.0 GM/DL 8.1 GM/DL Hematocrit 27.6 % 25.0 % Mean Corpuscular Volume 93.5 FL 93.2 FL Mean Corpuscular Hemoglobin 30.5 PG 30.2 PG Mean Corpuscular Hemoglobin 32.7 % 32.4 % Concent Red Cell Distribution Width 16.0 % 16.1 % Platelet Count 477 TH/MM3 419 TH/MM3 Mean Platelet Volume 8.4 FL 8.2 FL Neutrophils (%) (Auto) 72.1 % Lymphocytes (%) (Auto) 13.8 % Monocytes (%) (Auto) 11.8 % Eosinophils (%) (Auto) 1.8 % Basophils (%) (Auto) 0.5 % Neutrophils # (Auto) 8.3 TH/MM3 Lymphocytes # (Auto) 1.6 TH/MM3 Monocytes # (Auto) 1.4 TH/MM3 Eosinophils # (Auto) 0.2 TH/MM3 Basophils # (Auto) 0.1 TH/MM3 CBC Comment DIFF FINAL Differential Comment Laboratory Tests Test 11/01/16 11/02/16 16:35 05:27 Sodium Level 139 MEQ/L 142 MEQ/L Potassium Level 4.5 MEQ/L 4.2 MEQ/L Chloride Level 107 MEQ/L 109 MEQ/L Carbon Dioxide Level 25.5 MEQ/L 24.2 MEQ/L Anion Gap 7 MEQ/L 9 MEQ/L Blood Urea Nitrogen 22 MG/DL 21 MG/DL Creatinine 1.84 MG/DL 1.67 MG/DL Estimat Glomerular Filtration 36 ML/MIN 40 ML/MIN Rate Random Glucose 136 MG/DL 93 MG/DL Calcium Level 9.4 MG/DL 9.2 MG/DL Total Bilirubin 0.3 MG/DL Aspartate Amino Transf 12 U/L (AST/SGOT) Alanine Aminotransferase 16 U/L (ALT/SGPT) Alkaline Phosphatase 159 U/L Total Protein 7.7 GM/DL Albumin 2.7 GM/DL Microbiology Date/Time Procedure Status Source Growth 11/01/16 16:35 Aerobic Blood Culture Received Blood Peripheral Pending 11/01/16 16:35 Anaerobic Blood Culture Received Blood Peripheral Pending 11/01/16 16:35 Aerobic Blood Culture Received Blood Peripheral Pending 11/01/16 16:35 Anaerobic Blood Culture Received Blood Peripheral Pending 11/01/16 16:35 Urine Culture Received Urine Catheterized Urine Pending 11/01/16 16:44 Gram Stain Received Wound Foot Pending 11/01/16 16:44 Wound Culture Received Wound Foot Pending Radiology Last Impressions Chest X-Ray 11/01/16 1557 Signed Impressions: Service Date/Time: October 16:20 - CONCLUSION: 1. No active disease. Minimal basilar scarring and atelectasis. Donald Sanderson MD Foot X-Ray 11/01/16 0000 Signed Impressions: Service Date/Time: October 16:20 - CONCLUSION: 1. Abnormal distal first metatarsal and proximal phalanx of the first digit with under mineralization and areas of lucency. Although nonspecific osteomyelitis could have this appearance. 2. There is dislocation versus subluxation at the first MTP joint. There is questionable fracture involving the proximal aspect of the proximal phalanx of the first digit. 3. Diffuse left foot soft tissue swelling. Small vessel arterial vascular calcification in a pattern typically seen in diabetic patients. Van Hartley MD Assessment/Plan Problem List: (1) Non-pressure chronic ulcer of other part of right foot with necrosis of bone Status: Chronic (2) Diabetes mellitus with peripheral circulatory disorder Status: Chronic (3) Diabetic nephropathy associated with type 2 diabetes mellitus Status: Chronic (4) Osteomyelitis of left foot Status: Acute (5) Toe amputation status Status: Acute (6) Type 2 diabetes mellitus with diabetic peripheral angiopathy without gangrene Status: Chronic Additional Plans & Procedures PLAN: Patient will be taken to the operating room on Saturday morning for amputation. Explained procedures to patient and . He wishes to proceed with the planned surgery. Patient will need a short term of postop antibiotics after surgery. Preop orders were written. Hold Plavix and aspirin. Roderick Bang DPM Nov 02, 2016 10:01
[2016-11-02] MEDS ORDERED: ICU - POTASSIUM PHOSPHATE MONOBASIC 500 MG TAB PO/TUBE PRN (11:00)
[2016-11-02] MEDS ORDERED: ICU - MAGNESIUM SULFATE 4 GM/NS 100 ML IV PRN ×2 (11:00)
[2016-11-02] MEDS ORDERED: ICU - POTASSIUM CHLORIDE/AQUEOUS SOLN 20 MEQ/100 ML IVPB IV PRN (11:00)
[2016-11-02] MEDS ORDERED: ICU - SODIUM PHOSPHATE 30 MMOL/NS 250 ML IV PRN ×2 (11:00)
[2016-11-02] MEDS ORDERED: ICU - POTASSIUM PHOSPHATE 30 MMOL/NS 250 ML IV PRN ×2 (11:00)
[2016-11-02] MEDS ORDERED: ICU - CALL ORDERING PHYSICIAN XX PRN (11:00)
[2016-11-02] MEDS ORDERED: ICU - D/C ICU ELECTROLYTE ORDERS XX PRN (11:00)
[2016-11-02] MEDS ORDERED: ICU - MAGNESIUM SULFATE 2 GM/NS 100 ML IV PRN ×2 (11:00)
[2016-11-02] MEDS ORDERED: ICU - MAGNESIUM OXIDE 400 MG TAB PO PRN (11:00)
[2016-11-02] MEDS ORDERED: ICU - POTASSIUM CHLORIDE/AQUEOUS SOLN 40 MEQ/100 ML IVPB IV PRN (11:00)
--- NOTE | 2016-11-02 11:08 | MH ---
cc: MAGDY EVANS MD DATE OF ADMISSION: 11/01/2016 DATE OF : 1940 REASON FOR ADMISSION Non-healing wound, left foot. HISTORY OF TRAVEL IN THE LAST 30 DAYS None. HISTORY OF PRESENT ILLNESS This is a pleasant 76-year-old obese white male who has been dealing with multiple foot wounds and has been seen per Dr. Bang of podiatry on an outpatient basis. The patient has already had surgical procedures which include an amputation of his right great toe. He is now having non-healing wounds on his left foot for several months. The patient currently has a dressing on which has an odor noted and a serous bloody drainage. The patient was brought into the emergency room per Dr. Bang for a surgical excision of the first metatarsal bone versus amputation of the left hallux. The patient is currently n.p.o., resting on the stretcher. He is alert and oriented. a fair historian. He does associate pain with his left toe and foot. He denies any chest pain. No shortness of breath. No nausea, vomiting, diarrhea or constipation. He denies any headache. No weight gain or weight loss in the past few months. He does note some decreased activity and mobility secondary to his multiple foot wound infections and surgical procedures. Currently a family member is at his side for support. The patient denies any numbness or tingling in his extremities. PAST MEDICAL HISTORY 1. Osteoarthritis. 2. Cardiovascular disease. 3. Hyperlipidemia. 4. Diabetes, insulin dependent. 5. Hypertension. 6. Kidney stones. 7. Chronic renal failure. 8. Thyroid disease. PAST SURGICAL HISTORY 1. CABG; patient states x1. 2. Cataract right eye. 3. Tonsillectomy. 4. Right carpal tunnel surgery. 5. Right foot great toe amputation. ALLERGIES No known. MEDICATIONS Medications reported: 1. Potassium. 2. Plavix. 3. Garlic. 4. Amaryl. 5. Crestor. 6. Bumex. 7. Isosorbide. 8. Aspirin. 9. Coreg. 10.Lantus insulin. 11.Multivitamin. 12.NovoLog insulin. 13.Synthroid. 14.Lansoprazole. SOCIAL HISTORY The patient is currently , lives at home with his . He had tobacco use in his early years but quit approximately 50 years ago. Rare social alcohol use, none in the past 6 months. REVIEW OF SYSTEMS A 12-point review was done. Positives noted are non-healing foot wounds, pain, debility and decreased activity. Other systems are negative or unremarkable. PHYSICAL EXAMINATION VITAL SIGNS: Temperature 94.4, pulse 86, respirations 17, blood pressure initially on admission 126/58, now 173/77 and 158/67. O2 sat 98 on room air. GENERAL: An obese white male who looks to be his stated age resting in the bed, alert, a fair historian. SKIN: Slightly pale but warm and dry. On his right foot he has a dressing on the lateral side that is clean, dry and intact with a 1 cm wound. The left foot has blood drainage, open wound approximately 3 cm in diameter positive for odor, some purulent drainage and necrotic tissue, located on the medial left hallux. HEENT: Atraumatic, normocephalic. PERRLA. Mucous membranes are pink and moist. No nasal discharge. NECK: Thick, supple. CARDIOVASCULAR: Regular rate and rhythm. No murmurs, rubs or gallops audible. Distant heart sounds. PULMONARY: Low air volumes but essentially clear anteriorly and posteriorly with no wheezes, rales or rhonchi. ABDOMEN: Round, soft, nontender, nondistended. Active bowel sounds in all four quadrants. EXTREMITIES: He can move his upper extremities with purpose. He has equal hand head of design. He can wiggle his toes on his left and right foot. He can overcome resistance. His extremities are warm to touch. He does have edema. Right leg is 3+, left leg 2+. Pulses are weak but intact. NEUROLOGIC: He is alert, oriented. a fair historian. Speech is clear. PSYCHIATRIC: Appropriate mood and affect. Judgment is normal. Mild anxiety noted over current condition. LABORATORY DATA WBC count 11.2, RBC 2.68, hemoglobin 8.1, hematocrit 25. Chemistry: Sodium 142, potassium 4.2, chloride 109, carbon dioxide 24.2, anion gap 9, BUN 21, creatinine 1.67, GFR 40, random glucose 93, calcium 9.2. INR is 1. Urine is yellow, clear, pH 6, specific gravity 1.017, protein 30, glucose negative, ketones negative, nitrites and bilirubin negative, moderate amount occult blood, urine bilinogen less than 2, small amount of leukocyte esterase, few urine mucus. IMAGING DATA Chest x-ray: Minimal basilar scarring and atelectasis. Foot x-ray: Abnormal distal first metatarsal and proximal phalangeal of the first digit, under-mineralization and areas of lucency. Nonspecific osteomyelitis could have this appearance there is dislocation versus subluxation of the first MTP joint. Questionable fracture involving the proximal aspect of the proximal phalangeal first digit. Diffuse left foot soft tissue swelling. Small vessel arterial calcification with a pattern typically seen in diabetics. ASSESSMENT 1. Osteomyelitis, left foot. 2. Non-healing ischemic diabetic ulcer. 3. Coronary artery disease. 4. Hypertension. 5. Diabetes type 2 with long-term insulin use and diabetic neuropathy. 6. Chronic kidney disease. 7. Anemia. 8. Leukocytosis. PLAN 1. Admit. The patient will be monitored for his vital signs and labs and any abnormal treated. 2. Wound Care consult for their expert opinion. 3. Consult podiatry, Dr. Bang. The plan is for the patient to remain n.p.o. this morning for probable surgical excision of the left foot first metatarsal bone versus amputation. The patient has received ampicillin and vancomycin in the emergency room. Wound cultures have been received and are pending. 4. O2 therapy. 5. Medications reconciled. 6. Accu-Cheks a.c. and h.s. with sliding scale insulin. After the patient is released for diet he will be placed on a 2000 calories ADA. 7. PUD prophylaxis with Pepcid IV. 8. DVT prophylaxis with aspirin, Plavix and Lovenox. 9. The patient is a full code, full aggressive care. 10.We will follow for his other needs. Dictated by: MARIA TERESA Wise MD ZAYRA Wilkerson/ARCELIA /9:21 AM /11:02 AM seen and examined by myself,Dr Evans , On 11/02/16 We will follow plan as outlined by a industrial machine operator Dr. Bang discussed with nurse Discussed with patient Discussed with mid-level practitioner The exam, history, and the medical decision-making described in the above note were completed with the assistance of the mid-level provider. I reviewed the findings presented. I attest that I had a [id number] encounter with the patient on the same day, and personally performed and documented my assessment and findings in the medical record. BETH
[2016-11-02 11:18] VITALS: BP 169/74; PULSE 76; RESP 17; TEMP 98; O2SAT 98
--- NOTE | 2016-11-02 12:55 | RADRPT ---
EXAM DATE/TIME: 11/01/2016 00:00 [facility] COMPARISON: No previous studies available for comparison. INDICATIONS : Osteomyelitis left foot with necrotic wound TECHNIQUE: Five-station segmental examination of the lower extremities was performed. Pulsed-cuff waveform tracings and pressures were recorded. Ankle-brachial indices and toe-brachial indices were calculated. PRESSURES (mmHg): Brachial (arm): Right IV SITE Left 115 Lower Thigh: Right CNO>230 Left CNO>230 Calf: Right CNO>230 Left CNO>230 Ankle: Right CNO>260 Left 99 Toe: Right N/A Left 0 ERICKSON: Right CNO Left 0.86 TBI: Right N/A Left 0.00 PULSED CUFF WAVEFORMS: Significant blunting of pulse-wave amplitude is identified in the right lower extremity. CONCLUSION: Markedly elevated segmental pressures in the right lower extremity with not calculable ERICKSON. Markedly elevated segmental pressures in the left lower extremity above the ankle with mild decrease in ERICKSON. Non-measurable TBIs. CT aorta with runoff should be considered insignificant clinical arterial insufficiency is suspected. Sanford Freed MD on November 02, 2016 at 12:51 Board Certified Radiologist. This report was verified electronically.
--- NOTE | 2016-11-02 14:07 | PD.ID.CON ---
History of Present Illness Service ID Consult Requested By Dr Gutierrez Reason for Consult DFI, osteomyelitis first MPJ left foot Primary Care Physician Diagnoses: History of Present Illness Pt is a poor historian, hx from the family and chart 76-year-old diabetic male with severe peripheral vascular disease sp recent endovascular intervention on left lower extremity with improved blood flow. Patient presents with exposed bone at the first metatarsal phalangeal joint and radiographs show destruction of the joint. He is dealing with the wound for several mos. Cultures are growing gram neg leonard and staph spp Patient was admitted for amputation of the left hallux. Dr Bang will be taking pt to the operating room on Saturday morning for amputation. Review of Systems Except as stated in HPI: all other systems reviewed are Neg Past Family Social History Allergies: Coded Allergies: No Known Allergies (Unverified , 11/01/16) Past Medical History Cataracts Diabetes mellitus, Hyperthyroidism Coronary artery disease, Heart failure, Hyperlipidemia, Hypertension, Peripheral vascular dz Kidney disease, Kidney failure Osteoarthritis Chickenpox (had as a child), Measles (had as a child), Mumps (had as a child) Peripheral neuropathy Hearing deficit, Vision deficit Past Surgical History Cataract extraction, Dental surgery (upper dentures and partial on the bottom), Tonsillectomy Angiogram, Angioplasty, CABG surgery partial amputation second and third toes right foot, amputation right hallux Active Ordered Medications Medications where reviewed in EMR Antibiotics Include: vancomycin zosyn Family History Non-Contributory. Social History No Tobacco. No ETOH. No Illicit Drugs. Physical Exam Vital Signs Vital Signs Date Time Temp Pulse Resp B/P Pulse Ox O2 Delivery O2 Flow Rate FiO2 11/02/16 11:18 98.0 76 17 169/74 98 Room Air 11/02/16 08:00 98.4 86 17 173/77 98 Room Air 11/02/16 08:00 17 98 Room Air 11/02/16 08:00 17 11/02/16 02:00 76 16 158/67 97 Room Air 11/01/16 19:42 77 18 209/81 96 Room Air 11/01/16 16:30 72 18 198/86 97 Room Air 11/01/16 16:29 97 Room Air 11/01/16 16:29 97 Room Air Physical Exam CONSTITUTIONAL/GENERAL: This is an adequately nourished patient, in no apparent distress. TUBES/LINES/DRAINS: SKIN: No jaundice, rashes, or lesions. Ecchymoses on upper extremities. No wounds seen anteriorly. Skin temperature appropriate. Not diaphoretic. HEAD: Atraumatic. Normocephalic. EYES: Pupils equal and round and reactive. Extraocular motions intact. No scleral icterus. No injection or drainage. Fundi not examined. ENT: Hearing grossly normal. Nose without bleeding or purulent drainage. Oral mucosae moist, edentulous NECK: Trachea midline. Supple, nontender. No palpable thyroid enlargement or nodularity. CARDIOVASCULAR: Regular rate and rhythm without murmurs, gallops, or rubs. No JVD. Peripheral pulses symmetric. RESPIRATORY/CHEST: Symmetric, unlabored respirations. Clear to auscultation. Breath sounds equal bilaterally. No wheezes, rales, or rhonchi. GASTROINTESTINAL: Abdomen soft, non-tender, nondistended. No hepato-splenomegaly , or palpable masses. No guarding. Bowel sounds present. GENITOURINARY: Without palpable bladder distension. MUSCULOSKELETAL: Extremities without clubbing, cyanosis, or edema. STATUS LOCALIS small part thickenss ulcer R 5th MT area with sourous d/c no erythema, no edema , not appearinginfectesd Lart L 1 MT medial surface ulcer with necrotic black tissu in wound bed, erythema adn edema; invilvint L hallux and spreading to medial forefoot no ascending cellulits or lympahngitis LYMPHATICS: No palpable cervical or supraclavicular adenopathy. NEUROLOGICAL: Awake and alert. Motor and sensory grossly within normal limits. Follows commands. Normal speech. Moves all extremities. PSYCHIATRIC: flat affect Laboratory Laboratory Tests Test 11/01/16 11/02/16 16:35 05:27 White Blood Count 11.5 11.2 Red Blood Count 2.96 2.68 Hemoglobin 9.0 8.1 Hematocrit 27.6 25.0 Mean Corpuscular Volume 93.5 93.2 Mean Corpuscular Hemoglobin 30.5 30.2 Mean Corpuscular Hemoglobin 32.7 32.4 Concent Red Cell Distribution Width 16.0 16.1 Platelet Count 477 419 Mean Platelet Volume 8.4 8.2 Neutrophils (%) (Auto) 72.1 Lymphocytes (%) (Auto) 13.8 Monocytes (%) (Auto) 11.8 Eosinophils (%) (Auto) 1.8 Basophils (%) (Auto) 0.5 Neutrophils # (Auto) 8.3 Lymphocytes # (Auto) 1.6 Monocytes # (Auto) 1.4 Eosinophils # (Auto) 0.2 Basophils # (Auto) 0.1 CBC Comment DIFF FINAL Differential Comment Prothrombin Time 11.3 Prothromb Time International 1.0 Ratio Activated Partial 28.4 Thromboplast Time Urine Color YELLOW Urine Turbidity CLEAR Urine pH 6.0 Urine Specific [place] 1.017 Urine Protein 30 Urine Glucose (UA) NEG Urine Ketones NEG Urine Occult Blood MOD Urine Nitrite NEG Urine Bilirubin NEG Urine Urobilinogen LESS THAN 2.0 Urine Leukocyte Esterase SMALL Urine RBC 142 Urine WBC 20 Urine Squamous Epithelial <1 Cells Urine Bacteria OCC Urine Mucus FEW Microscopic Urinalysis Comment CATH-CULTURE IND Sodium Level 139 142 Potassium Level 4.5 4.2 Chloride Level 107 109 Carbon Dioxide Level 25.5 24.2 Anion Gap 7 9 Blood Urea Nitrogen 22 21 Creatinine 1.84 1.67 Estimat Glomerular Filtration 36 40 Rate Random Glucose 136 93 Calcium Level 9.4 9.2 Total Bilirubin 0.3 Aspartate Amino Transf 12 (AST/SGOT) Alanine Aminotransferase 16 (ALT/SGPT) Alkaline Phosphatase 159 Total Protein 7.7 Albumin 2.7 Date/Time Procedure Status Source Growth 11/01/16 16:44 Gram Stain - Final Resulted Wound Foot 11/01/16 16:44 Wound Culture Resulted Wound Foot Pending 11/01/16 16:35 Urine Culture - Preliminary Resulted Urine Catheterized Urine NO GROWTH IN 24 HOURS. 11/01/16 16:35 Aerobic Blood Culture - Preliminary Resulted Blood Peripheral NO GROWTH IN 1 DAY 11/01/16 16:35 Anaerobic Blood Culture - Preliminary Resulted Blood Peripheral NO GROWTH IN 1 DAY Result Diagram: 11/02/16 0527 11/02/16 0527 Imaging Last Impressions Chest X-Ray 11/01/16 1557 Signed Impressions: Service Date/Time: October 16:20 - CONCLUSION: 1. No active disease. Minimal basilar scarring and atelectasis. Donald Sanderson MD Foot X-Ray 11/01/16 0000 Signed Impressions: Service Date/Time: October 16:20 - CONCLUSION: 1. Abnormal distal first metatarsal and proximal phalanx of the first digit with under mineralization and areas of lucency. Although nonspecific osteomyelitis could have this appearance. 2. There is dislocation versus subluxation at the first MTP joint. There is questionable fracture involving the proximal aspect of the proximal phalanx of the first digit. 3. Diffuse left foot soft tissue swelling. Small vessel arterial vascular calcification in a pattern typically seen in diabetic patients. Van Hartley MD Assessment and Plan Assessment and Plan Infected L 1 metatarsal wound with gangrene and osteo DFI agree with broad spectruma abx (vanco, zosyn) - fu clx to eugenio abx - needs surgical debridement vs amputatiton Dilma Mcdaniel MD Nov 02, 2016 14:07
[2016-11-02] MEDS ORDERED: VANCOMYCIN 1,500 MG/NS 500 ML IV SCH ×2 (15:00)
[2016-11-02 15:18] VITALS: BP 168/70; PULSE 66; RESP 20; TEMP 98.2; O2SAT 98
--- NOTE | 2016-11-02 19:51 | EKG ---
Date Performed: 11/01/2016 Time Performed: 16:42:20 PTAGE: 76 years EKG: Sinus rhythm NONSPECIFIC ST & T-WAVE ABNORMALITY BORDERLINE ECG PREVIOUS TRACING : 07/12/2016 14.35 Compared to prior tracing no significant change DOCTOR: Bhanu Stark Interpretating Date/Time 11/02/2016 19:50:01
[2016-11-02 20:36] VITALS: BP 161/59; PULSE 79; RESP 20; TEMP 98.7; O2SAT 98
[2016-11-02] MEDS: ENOXAPARIN SODIUM 40 MG/0.4 ML SYRINGE SQ SCH (21:00)
[2016-11-02] MEDS: ATORVASTATIN 40 MG TAB PO SCH (21:28)
[2016-11-02] MEDS: INSULIN DETEMIR 100 UNITS/ML VIAL SQ SCH (21:29)
[2016-11-03] VITALS (7 sets, daily range): BP systolic 97–185; BP diastolic 48–77; PULSE 60–79; RESP 16–20; TEMP 96.8–99.1; O2SAT 95–99
[2016-11-03] MEDS: PIPERACIL-TAZO 2.25 GM PREMIX 50 ML IV SCH ×4 (03:00→20:59)
[2016-11-03] MEDS ORDERED: INSULIN HUMAN REGULAR 1,000 UNITS/10 ML VIAL SQ PRN (06:00)
[2016-11-03] MEDS: LEVOTHYROXINE SODIUM 50 MCG TAB PO SCH (06:18)
[2016-11-03] MEDS: INSULIN ASPART SUPPLEMENTAL SCALE SQ SCH ×7 (06:23→20:54)
[2016-11-03] MEDS ORDERED: LIDOCAINE HCL 1% 50 ML VIAL ONE (07:17)
[2016-11-03] MEDS ORDERED: BUPIVACAINE HCL PF 0.5% 30 ML VIAL ONE (07:17)
[2016-11-03] MEDS ORDERED: LACTATED RINGER'S 1000 ML IV SCH (08:00)
[2016-11-03] MEDS ORDERED: SODIUM CHLORID 0.9% 500 ML IV SCH (08:00)
[2016-11-03] MEDS: GLIMEPIRIDE 4 MG TAB PO SCH (08:00)
[2016-11-03] MEDS ORDERED: DO NOT ADM ANY ANTICOAGULANT DRUGS XX PRN (08:44)
[2016-11-03] MEDS ORDERED: SODIUM CHLORIDE 0.9% FLUSH 5 ML FLUSH IVF PRN (08:45)
[2016-11-03] MEDS ORDERED: NALOXONE HCL 0.4 MG/ML AMP IV PRN (08:45)
[2016-11-03] MEDS ORDERED: MORPHINE SULFATE 4 MG/ML INJ IV PRN (08:45)
[2016-11-03] MEDS: ACETAMINOPHEN 1000 MG/100 ML VIAL IV SCH ×3 (08:45→20:45)
[2016-11-03] MEDS ORDERED: Post-op Orders (for Pharmacy) MISC XX ONE (08:45)
--- NOTE | 2016-11-03 08:51 | PD.OP ---
Operative Report Date of Surgery: Nov 03, 2016 Preoperative Diagnosis: (1) Osteomyelitis of left foot Left hallux Postoperative Diagnosis: (1) Osteomyelitis of left foot Left hallux Procedure: Amputation of left hallux and first metatarsal head Anesthesia: General inhalation Surgeon: Roderick Bang DPM Rock Splitter(s): None Operation and Findings: Patient was brought to the operating room and placed on the operating table in the supine position. A pneumatic ankle cuff was placed around the left ankle after adequate web roll padding. Patient was given general inhalation anesthesia and the left foot was prepped and draped in the usual sterile manner. After the appropriate timeout was performed the left foot was elevated above the operating table for 3 minutes at which time the pneumatic ankle cuff was inflated to 250 mmHg. Left foot was lowered to the operating table and was noted the patient had an open wound overlying the first MPJ with exposed bone. Preoperative radiographs show destruction of the base of the proximal phalanx and the head of the first metatarsal. At this time to semi-elliptical incisions were made centered between the first and second toe and the plantar proximal aspect of the medial aspect of the first metatarsal head. The incisions were deepened using sharp and blunt dissection and the hallux was disarticulated and removed at the MPJ. At this time using sharp dissection the head of the first metatarsal was freed up and using an oscillating saw was resected back to good strong bone. Any necrotic tissue was resected at this time. Wound was flushed with copious amounts of sterile saline. The incision was reapproximated and closed with 3-0 Vicryl and surgical skin janay and Steri-Strips. The area was anesthetized with 10 cc of 0.5% Marcaine plain. The pneumatic ankle cuff was deflated at the 17 minute jesus. Incision was dressed with Adaptic 4 x 4's Adrian and an Santiago bandage. The left hallux and first metatarsal head was sent to pathology. Sponge and instrument counts were noted to be correct. Patient tolerated the procedures and anesthesia well and left the OR to PACU in apparent satisfactory condition with all vital signs stable. Estimated blood loss was less than 10 cc. Roderick Bang DPM Nov 03, 2016 08:51
[2016-11-03] MEDS ORDERED: fentaNYL CITRATE 250 MCG/5 ML AMP ONE (08:55)
[2016-11-03] MEDS: DEXTROSE 50% IN WATER 50 ML VIAL(D50) IV PUSH PRN ×2 (08:57→21:54)
[2016-11-03] MEDS: FAMOTIDINE 20 MG TAB PO SCH ×2 (09:00→20:53)
[2016-11-03] MEDS: SODIUM CHLORIDE 0.9% FLUSH 5 ML FLUSH IVF SCH ×2 (09:00→20:54)
[2016-11-03] MEDS: CARVEDILOL 6.25 MG TAB PO SCH ×2 (09:00→20:53)
[2016-11-03] MEDS: ISOSORBIDE MONONITRATE 30 MG TAB PO SCH (09:00)
--- NOTE | 2016-11-03 09:41 | RADRPT ---
EXAM DATE/TIME: 11/03/2016 08:52 [facility] COMPARISON: FOOT LEFT COMPLETE ([id number]), November 01, 2016, 16:20. INDICATIONS : Status Post Op Left Foot. MEDICAL HISTORY : Hypertension. Diabetes mellitus type II. SURGICAL HISTORY : CABG. ENCOUNTER: Initial ACUITY: 1 day PAIN SCORE: Non-responsive. LOCATION: Left Foot. FINDINGS: The patient is status post resection of the first digit at the proximal aspect of the first metatarsa l. Skin janay are seen. There some air in the soft tissues. The remaining bones and joints are norm ally aligned. There is a bony destruction are seen. There is soft tissue swelling particular the at t he mid and hindfoot. Vascular calcifications are seen. CONCLUSION: Status post first digit amputation. Van Arevalo MD on November 03, 2016 at 9:37 Board Certified Radiologist. This report was verified electronically.
--- NOTE | 2016-11-03 10:02 | HHI.PR ---
Subjective Subjective Remarks resting in bed alert pain post op lt. foot appetite fair, taking PO fluids (Mila Vinson) Review of Systems Constitutional Constitutional: Fatigue Constitutional Remarks 10 point ROS done. fatique, mild, lt foot pain, other systems negative ( Mila Vinson) Musculoskeletal MS: Stiffness (lt foot surgery today) (Mila Vinson) Integumentary Skin: Wounds (lt foot rt. hallux amputation and first metatarsal head) (Mila Vinson) Psychiatric Psychiatric: Normal Mood (Mila Vinson) Vitals/Results Intake & Output 11/02/16 11/02/16 11/03/16 14:59 22:59 06:59 Intake Total 360 ml 240 ml Output Total 250 ml 700 ml Balance 360 ml -10 ml -700 ml Intake Oral 360 ml 240 ml Output Urine Total 250 ml 700 ml # Voids 1 # Bowel Movements 1 Vital Signs Vital Signs Date Time Temp Pulse Resp B/P Pulse Ox O2 Delivery O2 Flow Rate FiO2 11/03/16 09:15 98.2 131 12 131/60 100 Nasal Cannula 2 11/03/16 09:00 60 12 122/59 98 Nasal Cannula 2 11/03/16 08:45 98.2 60 12 113/50 100 Nasal Cannula 4 11/03/16 08:00 97.7 68 16 123/55 98 11/03/16 04:10 98.2 63 18 134/62 99 11/03/16 00:24 99.1 79 20 136/64 95 11/02/16 20:36 98.7 79 20 161/59 98 11/02/16 15:18 98.2 66 20 168/70 98 11/02/16 11:18 98.0 76 17 169/74 98 Room Air (Mila Vinson) CBC/BMP: 11/02/16 0527 11/02/16 05 Current Medications Active Medications Acetaminophen (Ofirmev Inj) 1,000 mg Q6H IV Last administered on 11/03/16t 08:45 ; Admin Dose 1,000 MG; Start 11/03/16 at 08:45; Stop 11/04/16 at 02:46 Aspirin (Ecotrin Ec) 81 mg DAILY PO; Start 11/04/16 at 09:00 Bupivacaine HCl (Marcaine Pf 0.5% Inj) 30 ml STK-MED ONCE .ROUTE Last administered on 11/03/16t 08:27; Admin Dose 30 ML; Start 11/03/16 at 07:17; Stop 11/03/16 at 07:18; Status DC Clopidogrel Bisulfate (Plavix) 75 mg DAILY PO; Start 11/04/16 at 09:00 Fentanyl Citrate (fentaNYL INJ) 250 mcg STK-MED ONCE .ROUTE; Start 11/03/16 at 08:55; Stop 11/03/16 at 08:56; Status DC IV Flush (NS Flush) 2 ml BID IVF; Start 11/03/16 at 09:00 IV Flush (NS Flush) 2 ml UNSCH PRN IVF; Start 11/03/16 at 08:45 Lactated Ringer's 1,000 ml @ 30 mls/hr Q24H IV; Start 11/03/16 at 08:00 Lidocaine HCl (Xylocaine 1% Inj (50 ml)) 50 ml STK-MED ONCE .ROUTE; Start at 07:17; Stop 11/03/16 at 07:18; Status DC Magnesium Oxide 800 mg 800 mg UNSCH PRN PO; Start 11/02/16 at 11:00; Status Cancel Magnesium Sulfate 4 gm/Sodium Chloride 108 ml @ 54 mls/hr UNSCH PRN IV; Start 11/02/16 at 11:00; Status Cancel Magnesium Sulfate/ Sodium Chloride (Magnesium Sulfate Inj/NS Inj) 104 ml @ 52 mls/hr UNSCH PRN IV; Start 11/02/16 at 11:00; Status Cancel Miscellaneous Information ALL NURSING DEPARTME... UNSCH PRN XX; Start 11/03/16 at 08:44; Stop 11/04/16 at 08:43 Miscellaneous Information D/C ICU ELECTROLYTE ORDERS... UNSCH PRN XX; Start 06/11 at 11:00; Status Cancel Miscellaneous Information ICU - CALL ORDERING PHYSIC... UNSCH PRN XX; Start 06/11 at 11:00; Status Cancel Miscellaneous Information SPECIFIC LAB TO BE OWEN... ONCE ONCE XX; Start at 14:45; Stop 11/04/16 at 14:46 Miscellaneous Information (Post-op Orders (for Pharmacy)) STAT ONCE XX; Start 11/03/16 at 08:45; Stop 11/03/16 at 08:59; Status DC Morphine Sulfate (Morphine Inj) 4 mg Q3H PRN IV; Start 11/03/16 at 08:45 Naloxone HCl (Narcan Inj) 0.4 mg UNSCH PRN IV; Start 11/03/16 at 08:45 Oxycodone HCl (Roxicodone) 5 mg Q4H PRN PO; Start 11/03/16 at 08:45 Oxycodone HCl (Roxicodone) 10 mg Q4H PRN PO; Start 11/03/16 at 08:45 Potassium Phosphate 2000 mg 2,000 mg UNSCH PRN PO/TUBE; Start 11/02/16 at 11:00 ; Status Cancel Potassium Phosphate 30 mmol/ Sodium Chloride 260 ml @ 43.333 mls/ hr UNSCH PRN IV; Start 11/02/16 at 11:00; Status Cancel Potassium Chloride 100 ml @ 25 mls/hr UNSCH PRN IV; Start 11/02/16 at 11:00; Status Cancel Potassium Chloride 100 ml @ 50 mls/hr UNSCH PRN IV; Start 11/02/16 at 11:00; Status Cancel Sodium Chloride (NS 500 ml Inj) 500 ml @ 30 mls/hr [id number] IV; Start 11/03/16 at 08:00; Stop 11/04/16 at 07:59 Sodium Phosphate/ Sodium Chloride (Sodium Phosphate Inj/NS 250 ml Inj) 260 ml @ 43.333 mls/ hr UNSCH PRN IV; Start 11/02/16 at 11:00; Status Cancel Vancomycin HCl/ Sodium Chloride (Vancomycin Inj/ NS 500 ml Inj) 515 ml @ 257.5 mls/ hr Q24H IV Last administered on 11/02/16t 16:52; Admin Dose 257.5 MLS/HR; Start 11/02/16 at 15:00 (Mila Vinson) Physical Exam General General Appearance: Well Developed, Well Nourished, No Acute Distress, Comfortable (Mila Vinson) Eyes Eye Exam: Pupils Equal, Pupils Reactive (Mila Vinson) Ears & Nose Ears & Nose Exam: Nasal Mucosa [place] (Gifford,Mila M. SWIMMING PROFESSOR) Throat Throat Exam: Oral Mucosa [place] & Moist (Gifford,Mila M. SWIMMING PROFESSOR) Neck Neck Exam: Neck Supple, Trachea Midline (Alisson,Mila M. SWIMMING PROFESSOR) Pulmonary Resp Exam: Clear Bilaterally, Breath Sounds Equal, No Distress (Alisson,Mila M. SWIMMING PROFESSOR) Cardiology CV Exam: Regular (Alisson,Mila M. SWIMMING PROFESSOR) Gastrointestinal/Abdomen GI Exam: Soft, Non-Tender, Bowel Sounds Present (Gifford,Mila M. SWIMMING PROFESSOR) Genitourinary Exam: Clear Urine (Gifford,Mila M. SWIMMING PROFESSOR) Musculoskeletal MS Exam: Joints Intact MS Remarks new surgery post op, day, amputation hallux, and 1st metatarsal head, bulky dressing, foot elevated. (Gifford,Susan M. SWIMMING PROFESSOR) Integumentary Skin Exam: Clear, Warm, Dry Skin Remarks see surgical notes (Mila Vinson M. SWIMMING PROFESSOR) Extremeties Extremities Exam: Trace Edema (rt. LL) (Alisson,Mila M. SWIMMING PROFESSOR) Neurologic Neuro Exam: Alert, Awake, Oriented, Speech Clear, Moving All Extremities ( Alisson,Mila M. SWIMMING PROFESSOR) VTE Prophylaxis VTE Prophylaxis Device: SCDs VTE Remarks plavix (Alisson,Susan M. SWIMMING PROFESSOR) PUD Prophylasis PUD Remarks asa (Alisson,Mila M. SWIMMING PROFESSOR) Assessment/Plan Assessment/Plan 1. Osteomyelitis, left foot. 2. Non-healing ischemic diabetic ulcer. 3. Coronary artery disease. 4. Hypertension. 5. Diabetes type 2 with long-term insulin use and diabetic neuropathy. 6. Chronic kidney disease. 7. Anemia. 8. Leukocytosis. PLAN 1. vital signs reviewed and labs. leukocytosis mild, 11.2. Check labs am. afebrile 2. Wound Care consult for their expert opinion. 3. Consult podiatry, Dr. Bang. Surgery today for left foot hallux amputation and 1 toe metatarsal head. Bulky drainage intact, left foot elevated. Discussed pain management . Post op care per Dr. Gamez., The patient has received ampicillin and vancomycin in the emergency room. Wound cultures have been received and are pending. 4. O2 therapy as warrented. rm air now 5. antibiotic therapy 6. Accu-Cheks a.c. and h.s. with sliding scale insulin. After the patient is released for diet he will be placed on a 2000 calories ADA. 7. PUD prophylaxis with Pepcid IV. 8. DVT prophylaxis with aspirin, Plavix and Lovenox. 9. The patient is a full code, full aggressive care. 10.Family in . Supportive care. (Mila Vinson) Assessment/Plan 76yr old male seen and examined today. Above A/P was discussed with Mila. S/p Amputation of left hallux and first metatarsal head today. Appreciate Dr. Bang input. Post op care per Dr. Bang. Pain control. Wound care consulted. AM labs. Discussed with patient/family. (Lars Restrepo MD) Mila Vinson Nov 03, 2016 10:02 Lars Restrepo MD Nov 03, 2016 14:19
[2016-11-03] MEDS ORDERED: ePHEDrine/NS 25 MG/5 ML SYR IV ONE (14:14)
[2016-11-03] MEDS ORDERED: ONDANSETRON HCL 4 MG/2 ML VIAL IV PUSH ONE (14:14)
[2016-11-03] MEDS ORDERED: NEOSTIGMINE 3 MG/3 ML SYR IV ONE (14:14)
[2016-11-03] MEDS ORDERED: PROPOFOL 200 MG/20 ML AMP IV ONE (14:14)
[2016-11-03] MEDS: ATORVASTATIN 40 MG TAB PO SCH (20:53)
[2016-11-03] MEDS: ENOXAPARIN SODIUM 40 MG/0.4 ML SYRINGE SQ SCH (20:54)
[2016-11-03] MEDS: INSULIN DETEMIR 100 UNITS/ML VIAL SQ SCH (20:54)
[2016-11-04] VITALS (7 sets, daily range): BP systolic 101–148; BP diastolic 52–75; PULSE 70–84; RESP 16–18; TEMP 96.8–99; O2SAT 94–98
[2016-11-04] MEDS: ACETAMINOPHEN 1000 MG/100 ML VIAL IV SCH (02:45)
[2016-11-04] MEDS: PIPERACIL-TAZO 2.25 GM PREMIX 50 ML IV SCH ×4 (03:12→21:06)
[2016-11-04] MEDS: DEXTROSE 50% IN WATER 50 ML VIAL(D50) IV PUSH PRN ×5 (03:13→21:07)
[2016-11-04] MEDS: LEVOTHYROXINE SODIUM 50 MCG TAB PO SCH (05:36)
[2016-11-04] MEDS: INSULIN ASPART SUPPLEMENTAL SCALE SQ SCH ×6 (06:10→20:00)
[2016-11-04 08:22] LABS: BICARBONATE 27.5 MEQ/L (21.0-32.0); POTASSIUM 4.9 MEQ/L (3.5-5.1)
[2016-11-04] MEDS: ISOSORBIDE MONONITRATE 30 MG TAB PO SCH (08:46)
[2016-11-04] MEDS: FAMOTIDINE 20 MG TAB PO SCH ×2 (08:46→21:06)
[2016-11-04] MEDS: CARVEDILOL 6.25 MG TAB PO SCH ×2 (08:46→21:00)
[2016-11-04] MEDS: GLIMEPIRIDE 4 MG TAB PO SCH (08:46)
[2016-11-04] MEDS: ASPIRIN EC 81 MG TABEC PO SCH (08:46)
[2016-11-04] MEDS: CLOPIDOGREL 75 MG TAB PO SCH (08:47)
[2016-11-04] MEDS: SODIUM CHLORIDE 0.9% FLUSH 5 ML FLUSH IVF SCH ×2 (08:48→21:07)
[2016-11-04] MEDS: DEXT 5%-NACL 0.45% 1000 ML INJ 1,000 ML IV SCH ×2 (10:31→21:06)
[2016-11-04 11:32] LABS: HEMATOCRIT 24.3 % (39.0-51.0); MEAN CELL VOLUME 92.5 FL (80.0-100.0); MEAN CORPUSCULAR HGB CONC 33.5 % (32.0-36.0); PLATELET COUNT 410 TH/MM3 (150-450); RED BLOOD COUNT 2.63 MIL/MM3 (4.50-5.90); RED CELL DISTRIBUTION WIDTH 15.9 % (11.6-17.2); REVIEW FLAG FINAL; WHITE BLOOD COUNT 12.8 TH/MM3 (4.0-11.0)
--- NOTE | 2016-11-04 11:54 | HHI.PR ---
Subjective Subjective Remarks resting in bed alert pain post op lt. foot appetite fair, taking PO fluids Review of Systems Constitutional Constitutional: Fatigue Constitutional Remarks 10 point ROS done. fatique, mild, lt foot pain, other systems negative Musculoskeletal MS: Stiffness (lt foot surgery today) Integumentary Skin: Wounds (lt foot rt. hallux amputation and first metatarsal head) Psychiatric Psychiatric: Normal Mood Vitals/Results Intake & Output 11/03/16 11/03/16 11/04/16 15:00 23:00 07:00 Intake Total 880 ml 730 ml Output Total 510 ml 600 ml Balance 370 ml 130 ml Intake Oral 480 ml 480 ml IV Total 250 ml Other 400 ml Output Urine Total 500 ml 600 ml Estimated Blood Loss 10 ml # Bowel Movements 0 Vital Signs Vital Signs Date Time Temp Pulse Resp B/P Pulse Ox O2 Delivery O2 Flow Rate FiO2 11/04/16 08:00 98.4 78 18 125/61 95 11/04/16 07:26 98 21 11/04/16 04:00 98.1 70 18 130/58 98 11/04/16 00:00 97.1 84 18 138/63 96 11/03/16 20:20 97 21 11/03/16 20:00 96.8 71 18 185/77 97 11/03/16 16:00 97.8 60 18 97/48 98 11/03/16 12:00 97.8 71 19 119/61 96 CBC/BMP: 11/04/16 1123 11/04/16 0721 Lab Results Laboratory Tests Test 11/04/16 11/04/16 07:21 11:23 Sodium Level 135 MEQ/L Potassium Level 4.9 MEQ/L Chloride Level 100 MEQ/L Carbon Dioxide Level 27.5 MEQ/L Anion Gap 8 MEQ/L Blood Urea Nitrogen 16 MG/DL Creatinine 1.91 MG/DL Estimat Glomerular Filtration 34 ML/MIN Rate Random Glucose 53 MG/DL Calcium Level 8.8 MG/DL White Blood Count 12.8 TH/MM3 Red Blood Count 2.63 MIL/MM3 Hemoglobin 8.1 GM/DL Hematocrit 24.3 % Mean Corpuscular Volume 92.5 FL Mean Corpuscular Hemoglobin 31.0 PG Mean Corpuscular Hemoglobin 33.5 % Concent Red Cell Distribution Width 15.9 % Platelet Count 410 TH/MM3 Mean Platelet Volume 7.7 FL Physical Exam General General Appearance: Well Developed, Well Nourished, No Acute Distress, Comfortable Eyes Eye Exam: Pupils Equal, Pupils Reactive Ears & Nose Ears & Nose Exam: Nasal Mucosa [place] Throat Throat Exam: Oral Mucosa [place] & Moist Neck Neck Exam: Neck Supple, Trachea Midline Pulmonary Resp Exam: Clear Bilaterally, Breath Sounds Equal, No Distress Cardiology CV Exam: Regular Gastrointestinal/Abdomen GI Exam: Soft, Non-Tender, Bowel Sounds Present Genitourinary Exam: Clear Urine Musculoskeletal MS Exam: Joints Intact MS Remarks new surgery post op, day, amputation hallux, and 1st metatarsal head, bulky dressing, foot elevated. Integumentary Skin Exam: Clear, Warm, Dry Skin Remarks see surgical notes Extremeties Extremities Exam: Trace Edema (rt. LL) Neurologic Neuro Exam: Alert, Awake, Oriented, Speech Clear, Moving All Extremities VTE Prophylaxis VTE Prophylaxis Device: SCDs VTE Remarks plavix PUD Prophylasis PUD Remarks asa Assessment/Plan Assessment/Plan 1. Osteomyelitis, left foot. 2. Non-healing ischemic diabetic ulcer. 3. Coronary artery disease. 4. Hypertension. 5. Diabetes type 2 with long-term insulin use and diabetic neuropathy. 6. Chronic kidney disease. 7. Anemia. 8. Leukocytosis.\ 9. Hypoglycemia PLAN 1. vital signs reviewed and labs. leukocytosis mild, 11.2. afebrile 2. Wound Care consult for their expert opinion. 3. Consult podiatry, Dr. Bang. Surgery 11/03/16 for left foot hallux amputation and 1 toe metatarsal head. Bulky drainage intact, left foot elevated. Post op care per Dr. Gamez., 4. O2 therapy as warrented. rm air now 5. antibiotic therapy 6. Accu-Cheks a.c. and h.s. with sliding scale insulin. After the patient is released for diet he will be placed on a 2000 calories ADA. 7. PUD prophylaxis with Pepcid IV. 8. DVT prophylaxis with aspirin, Plavix and Lovenox. 9. The patient is a full code, full aggressive care. 10. Several symptomatic bouts with hypoglycemia over the past 24 hours. When blood sugar starts to drop patient does feel lightheaded, confused, and some numbness around his lips. Staff has been checking routine blood sugars and treating per protocol. Currently IV fluids D5W running at 100 cc an hour. Patient has sliding scale insulin, along with long-acting insulin, and NovoLog insulin with meals. This was his outpatient dosage, even though patient is eating 100% of his diet here. Currently we will hold all long-acting insulin as well as NovoLog with meals, and treat per sliding scale for the next 24 hours. We will monitor for any bouts of hyperglycemia and use coverage with NovoLog until blood sugar stabilizes. Also DC'esau Taboraryl. Mila Vinson Nov 04, 2016 11:54
[2016-11-04] MEDS ORDERED: DEXTROSE 50% IN WATER 50 ML VIAL(D50) IV PUSH PRN (12:00)
[2016-11-04] MEDS ORDERED: GLUCAGON 1 MG/ML VIAL OTHER PRN (12:00)
--- NOTE | 2016-11-04 12:01 | PD.WOU.PN ---
Patient Intake Chief Complaint Osteomyelitis first ray left foot Consult Requested by [facility] Reason for Consult Treatment and resection of osteomyelitis first ray left foot Primary Care Physician History of Present Illness 76-year-old diabetic male with peripheral vascular disease status post endovascular intervention is being followed by myself at the wound center for open nonhealing wound of the left first MPJ. Bone was exposed consistent with osteomyelitis and radiograph showed destruction of the base of the proximal phalanx and the head of the first metatarsal of the left hallux. Patient was taken to the operating room yesterday for a left hallux amputation. Wound was flushed copiously prior to closure. Patient is doing well today. Minimal complaints of pain and discomfort. States his blood sugars have been low however he is eating a more consistent carbohydrate diet here at the hospital that at home. Coded Allergies: No Known Allergies (Unverified , 11/01/16) Preferred Language to Discuss: Malaysian Barriers to Learning: None Teaching Method: Discussion Vital Signs Date Time Temp Pulse Resp B/P Pulse Ox O2 Delivery O2 Flow Rate FiO2 11/04/16 08:00 98.4 78 18 125/61 95 11/04/16 07:26 98 21 11/04/16 04:00 98.1 70 18 130/58 98 11/04/16 00:00 97.1 84 18 138/63 96 11/03/16 20:20 97 21 11/03/16 20:00 96.8 71 18 185/77 97 11/03/16 16:00 97.8 60 18 97/48 98 11/03/16 12:00 97.8 71 19 119/61 96 Pain scale used: 0-10 numeric scale Pain score: 3 Medications Current Medications Ampicillin Sodium/ Sulbactam Sodium 1500 mg/Sodium Chloride 100 ml @ 200 mls/ hr ONCE ONCE IV Last administered on 11/01/16 19:39; Start 11/01/16 at 17:45; Stop 11/01/16 at 18:14; Status DC Vancomycin HCl/ Sodium Chloride (Vancomycin Inj/ NS 250 ml Inj) 250 ml @ 250 mls/hr ONCE ONCE IV Last administered on 11/01/16 17:48; Start 11/01/16 at 17: 45; Stop 11/01/16 at 18:44; Status DC Aspirin (Ecotrin Ec) 81 mg DAILY PO ; Start 11/02/16 at 09:00; Stop 11/03/16 at 09:01; Status DC Carvedilol (Coreg) 6.25 mg BID PO Last administered on 11/04/16 08:46; Start 11/01/16 at 21:00 Clopidogrel Bisulfate (Plavix) 75 mg DAILY PO ; Start 11/02/16 at 09:00; Stop at 09:01; Status DC Glimepiride (Amaryl) 4 mg DAILYAC PO Last administered on 11/04/16 08:46; Start 11/02/16 at 08:00; Stop 11/04/16 at 11:39; Status DC Insulin Aspart (NovoLOG SUPPLEMENTAL SCALE) 7 TIDAC SQ ; Start 11/02/16 at 08:00 ; Stop 11/04/16 at 11:41; Status DC Isosorbide Mononitrate (Imdur) 30 mg DAILY PO Last administered on 11/04/16 08 :46; Start 11/02/16 at 09:00 Levothyroxine Sodium (Synthroid) 50 mcg DAILY@06 PO Last administered on 05:36; Start 11/02/16 at 06:00 Insulin Detemir (Levemir Inj) 25 units HS SQ Last administered on 11/02/16 21: 29; Start 11/01/16 at 21:00; Stop 11/04/16 at 11:41; Status DC Atorvastatin Calcium 80 mg 80 mg HS PO Last administered on 11/03/16 20:53; Start 11/01/16 at 21:00 Piperacillin Sod/ Tazobactam Sod 50 ml @ 100 mls/hr Q6H IV Last administered on 11/04/16 08:47; Start 11/01/16 at 21:00 Pharmacy Profile Note (Vancomycin Consult Pharmacy) 0 ml @ 0 mls/hr UNSCH OTHER ; Start 11/01/16 at 20:15; Stop 11/03/16 at 12:40; Status DC Enalaprilat (Vasotec Inj) 2.5 mg Q6H PRN IV PUSH SBP >170; Start 11/01/16 at 20 :15 Dextrose (D50w (Vial) Inj) 25 ml UNSCH PRN IV PUSH HYPOGLYCEMIA-SEE COMMENTS Last administered on 11/04/16 06:11; Start 11/01/16 at 20:15 Glucagon (Glucagon Inj) 1 mg UNSCH PRN OTHER HYPOGLYCEMIA-SEE COMMENTS; Start 11/01/16 at 20:15 Insulin Aspart (NovoLOG SUPPLEMENTAL SCALE) 1 ACHS SLIDING SCALE SQ ; Start 11/01/16 at 21:00; Stop 11/04/16 at 11:43; Status DC Famotidine (Pepcid) 10 mg BID PO Last administered on 11/04/16 08:46; Start at 21:00 Enoxaparin Sodium 40 mg 40 mg Q24H SQ Last administered on 11/01/16 21:30; Start 11/01/16 at 21:00 Vancomycin HCl/ Sodium Chloride (Vancomycin Inj/ NS 250 ml Inj) 250 ml @ 250 mls/hr ONCE ONCE IV Last administered on 11/01/16 21:23; Start 11/01/16 at 21: 00; Stop 11/01/16 at 21:59; Status DC Miscellaneous 1 ea 1 ea UNSCH PRN OTHER SEE LABEL COMMENTS; Start 11/01/16 at 20 :30 Vancomycin HCl/ Sodium Chloride (Vancomycin Inj/ NS 500 ml Inj) 515 ml @ 257.5 mls/ hr Q24H IV Last administered on 11/02/16 16:52; Start 11/02/16 at 15:00; Stop 11/03/16 at 12:40; Status DC Miscellaneous Information SPECIFIC LAB TO BE OWEN... ONCE ONCE XX ; Start at 14:45; Stop 11/04/16 at 14:46 Cefazolin Sodium/ Dextrose (Ancef 2 Gm Premix) 50 ml @ 150 mls/hr BLOOD COLLECTOR IV ; Start 11/02/16 at 10:00; Stop 11/06/16 at 09:59 Miscellaneous Information D/C ICU ELECTROLYTE ORDERS... UNSCH PRN XX SEE DOSE INSTRUCTIONS; Start 11/02/16 at 11:00; Status Cancel Miscellaneous Information ICU - CALL ORDERING PHYSIC... UNSCH PRN XX SEE DOSE INSTRUCTIONS; Start 11/02/16 at 11:00; Status Cancel Potassium Chloride 100 ml @ 25 mls/hr UNSCH PRN IV ELECTROLYTE REPLACEMENT; Start 11/02/16 at 11:00; Status Cancel Potassium Chloride 100 ml @ 50 mls/hr UNSCH PRN IV ELECTROLYTE REPLACEMENT; Start 11/02/16 at 11:00; Status Cancel Magnesium Sulfate 4 gm/Sodium Chloride 108 ml @ 54 mls/hr UNSCH PRN IV ELECTROLYTE REPLACEMENT; Start 11/02/16 at 11:00; Status Cancel Magnesium Sulfate/ Sodium Chloride (Magnesium Sulfate Inj/NS Inj) 104 ml @ 52 mls/hr UNSCH PRN IV ELECTROLYTE REPLACEMENT; Start 11/02/16 at 11:00; Status Cancel Magnesium Oxide 800 mg 800 mg UNSCH PRN PO ELECTROLYTE REPLACEMENT; Start 11/02 at 11:00; Status Cancel Sodium Phosphate/ Sodium Chloride (Sodium Phosphate Inj/NS 250 ml Inj) 260 ml @ 43.333 mls/ hr UNSCH PRN IV ELECTROLYTE REPLACEMENT; Start 11/02/16 at 11:00 ; Status Cancel Potassium Phosphate 2000 mg 2,000 mg UNSCH PRN PO/TUBE ELECTROLYTE REPLACEMENT ; Start 11/02/16 at 11:00; Status Cancel Potassium Phosphate 30 mmol/ Sodium Chloride 260 ml @ 43.333 mls/ hr UNSCH PRN IV ELECTROLYTE REPLACEMENT; Start 11/02/16 at 11:00; Status Cancel Lactated Ringer's 1,000 ml @ 30 mls/hr Q24H IV ; Start 11/03/16 at 08:00; Stop 11/04/16 at 10:26; Status DC Sodium Chloride (NS 500 ml Inj) 500 ml @ 30 mls/hr [id number] IV ; Start 11/03/16 at 08:00; Stop 11/04/16 at 07:59; Status DC Insulin Human Regular (NovoLIN R INJ) See Protocol Table ... UNSCH X1 PRN SQ SEE PROTOCOL; Start 11/03/16 at 06:00; Stop 11/04/16 at 05:59; Status DC Bupivacaine HCl (Marcaine Pf 0.5% Inj) 30 ml STK-MED ONCE .ROUTE Last administered on 11/03/16t 08:27; Start 11/03/16 at 07:17; Stop 11/03/16 at 07:18 ; Status DC Lidocaine HCl (Xylocaine 1% Inj (50 ml)) 50 ml STK-MED ONCE .ROUTE ; Start 11/03 at 07:17; Stop 11/03/16 at 07:18; Status DC IV Flush (NS Flush) 2 ml UNSCH PRN IVF FLUSH AFTER USING IV ACCESS; Start 11/03 at 08:45 IV Flush (NS Flush) 2 ml BID IVF Last administered on 11/04/16 08:48; Start at 09:00 Miscellaneous Information (Post-op Orders (for Pharmacy)) STAT ONCE XX ; Start 11/03/16 at 08:45; Stop 11/03/16 at 08:59; Status DC Oxycodone HCl (Roxicodone) 10 mg Q4H PRN PO PAIN SCALE 6 TO 10 Last administered on 11/04/16 08:48; Start 11/03/16 at 08:45 Acetaminophen (Ofirmev Inj) 1,000 mg Q6H IV Last administered on 11/03/16 15: 12; Start 11/03/16 at 08:45; Stop 11/04/16 at 03:04; Status DC Morphine Sulfate (Morphine Inj) 4 mg Q3H PRN IV BREAKTHROUGH PAIN; Start at 08:45 Oxycodone HCl (Roxicodone) 5 mg Q4H PRN PO PAIN SCALE 3 TO 5; Start 11/03/16 at 08:45 Naloxone HCl (Narcan Inj) 0.4 mg UNSCH PRN IV SEE LABEL COMMENTS; Start at 08:45 Clopidogrel Bisulfate (Plavix) 75 mg DAILY PO Last administered on 11/04/16 08 :47; Start 11/04/16 at 09:00 Aspirin (Ecotrin Ec) 81 mg DAILY PO Last administered on 11/04/16 08:46; Start 11/04/16 at 09:00 Fentanyl Citrate (fentaNYL INJ) 250 mcg STK-MED ONCE .ROUTE ; Start 11/03/16 at 08:55; Stop 11/03/16 at 08:56; Status DC Miscellaneous Information ALL NURSING DEPARTME... UNSCH PRN XX SEE LABEL COMMENTS; Start 11/03/16 at 08:44; Stop 11/04/16 at 08:43; Status DC Dextrose/Sodium Chloride (D5W-1/2 NS 1000 ml Inj) 1,000 ml @ 100 mls/hr Q10H IV Last administered on 11/04/16 10:31; Start 11/04/16 at 10:30 Insulin Aspart (NovoLOG SUPPLEMENTAL SCALE) 1 Q4HR SQ ; Start 11/04/16 at 12:00 Past, Family & Social History Past Medical History HEENT: REPORTS HX OF: Cataracts Endocrine: REPORTS HX OF: Diabetes mellitus, Hyperthyroidism Cardiovascular: REPORTS HX OF: Coronary artery disease, Heart failure, Hyperlipidemia, Hypertension, Peripheral vascular dz Genitourinary: REPORTS HX OF: Kidney disease, Kidney failure Musculoskeletal: REPORTS HX OF: Osteoarthritis Infectious disease: REPORTS HX OF: Chickenpox (had as a child), Measles (had as a child), Mumps (had as a child) Neurologic: REPORTS HX OF: Peripheral neuropathy Disabilities: REPORTS HX OF: Hearing deficit, Vision deficit Past Surgical History HEENT: REPORTS HX OF: Cataract extraction, Dental surgery (upper dentures and partial on the bottom), Tonsillectomy Cardiovascular: REPORTS HX OF: Angiogram, Angioplasty, CABG surgery Musculoskeletal: REPORTS HX OF: Other musculoskeletal srg (partial amputation second and third toes right foot, amputation right hallu) Family Medical History Patient History: Alcohol abuse G8 BROTHER, Onset:Unknown ( at 60) Carcinomas G8 MOTHER, Onset:40's - 50 Substance Use Substance use: Denies use Review of Systems Notes No new changes since yesterday was amputation of the left hallux and hypoglycemia. Remainder of the 14 point review of systems exam is not changed Wound Assessment Vascular Assessment R Dorsails Pedis: Palpable L Dorsails Pedis: Palpable R Posterior Tibial: Palpable Temperature of Left Extremity: Warm Sensation of Left Extremity: Diminished Temperature of Right Extremity: Warm Sensation of Right Extremity: Diminished Wound Information - Wound One Wound Location: right lateral fifth metatarsal Wound Type: Diabetic Ulcer Wound Two Status post amputation of the left hallux Wound Location: Left medial foot first met head medial aspect Wound Three Wound Location: Right great toe - amputation site- Medial Lab and Radiology Results Laboratory Laboratory Tests Test 11/04/16 11:23 White Blood Count 12.8 TH/MM3 Red Blood Count 2.63 MIL/MM3 Hemoglobin 8.1 GM/DL Hematocrit 24.3 % Mean Corpuscular Volume 92.5 FL Mean Corpuscular Hemoglobin 31.0 PG Mean Corpuscular Hemoglobin 33.5 % Concent Red Cell Distribution Width 15.9 % Platelet Count 410 TH/MM3 Mean Platelet Volume 7.7 FL Laboratory Tests Test 11/04/16 07:21 Sodium Level 135 MEQ/L Potassium Level 4.9 MEQ/L Chloride Level 100 MEQ/L Carbon Dioxide Level 27.5 MEQ/L Anion Gap 8 MEQ/L Blood Urea Nitrogen 16 MG/DL Creatinine 1.91 MG/DL Estimat Glomerular Filtration 34 ML/MIN Rate Random Glucose 53 MG/DL Calcium Level 8.8 MG/DL Microbiology Date/Time Procedure Status Source Growth 11/01/16 16:35 Aerobic Blood Culture - Preliminary Resulted Blood Peripheral NO GROWTH IN 3 DAYS 11/01/16 16:35 Anaerobic Blood Culture - Preliminary Resulted Blood Peripheral NO GROWTH IN 3 DAYS 11/01/16 16:35 Aerobic Blood Culture - Preliminary Resulted Blood Peripheral NO GROWTH IN 3 DAYS 11/01/16 16:35 Anaerobic Blood Culture - Preliminary Resulted Blood Peripheral NO GROWTH IN 3 DAYS 11/01/16 16:35 Urine Culture - Final Complete Urine Catheterized Urine Gardnerella Vaginalis 11/01/16 16:44 Gram Stain - Final Complete Wound Foot 11/01/16 16:44 Wound Culture - Final Complete Klebsiella Pneumoniae Radiology Last Impressions Foot X-Ray 11/03/16 0000 Signed Impressions: Service Date/Time: Thursday, November 03, 2016 08:52 - CONCLUSION: Status post first digit amputation. Van Arevalo MD Chest X-Ray 11/01/16 1557 Signed Impressions: Service Date/Time: October 16:20 - CONCLUSION: 1. No active disease. Minimal basilar scarring and atelectasis. Donald Sanderson MD Assessment/Plan Problem List: (1) Non-pressure chronic ulcer of other part of right foot with necrosis of bone Status: Resolved Additional Plans & Procedures PLAN: Patient may get out of bed to chair and ambulate with walker minimal weightbearing left foot. Okay to discharge home on Saturday with oral antibiotics. Follow up with me in the wound center on . Discussed with patient and his . Roderick Bang DPM Nov 04, 2016 12:01
[2016-11-04] MEDS ORDERED: PHARMACY ORDERED LAB XX ONE (14:45)
[2016-11-04] MEDS: INSULIN NovoLIN REGULAR SUPPLEMENTAL SCALE SQ SCH ×2 (16:00→21:00)
[2016-11-04] MEDS: ATORVASTATIN 40 MG TAB PO SCH (21:06)
[2016-11-04] MEDS: ENOXAPARIN SODIUM 40 MG/0.4 ML SYRINGE SQ SCH (21:06)
[2016-11-05] VITALS: BP_SYST 110; BP_DIAS 5; BP_DIAS 58; PULSE 62; RESP 18; TEMP 98.3; TEMP 98.6; O2SAT 97
[2016-11-05] MEDS: DEXTROSE 50% IN WATER 50 ML VIAL(D50) IV PUSH PRN ×2 (03:32→16:17)
[2016-11-05] MEDS: PIPERACIL-TAZO 2.25 GM PREMIX 50 ML IV SCH ×3 (03:32→16:16)
[2016-11-05 04:00] VITALS: BP 108/56; PULSE 76; RESP 18; TEMP 97.2; O2SAT 97
[2016-11-05] MEDS: INSULIN ASPART SUPPLEMENTAL SCALE SQ SCH ×5 (04:00→16:00)
[2016-11-05] MEDS: DEXT 5%-NACL 0.45% 1000 ML INJ 1,000 ML IV SCH ×2 (05:46→10:57)
[2016-11-05] MEDS: INSULIN NovoLIN REGULAR SUPPLEMENTAL SCALE SQ SCH ×3 (05:46→16:00)
[2016-11-05] MEDS: LEVOTHYROXINE SODIUM 50 MCG TAB PO SCH (05:46)
[2016-11-05] MEDS: FAMOTIDINE 20 MG TAB PO SCH (08:09)
[2016-11-05] MEDS: CLOPIDOGREL 75 MG TAB PO SCH (08:09)
[2016-11-05] MEDS: ASPIRIN EC 81 MG TABEC PO SCH (08:10)
[2016-11-05] MEDS: ISOSORBIDE MONONITRATE 30 MG TAB PO SCH (08:10)
[2016-11-05] MEDS: SODIUM CHLORIDE 0.9% FLUSH 5 ML FLUSH IVF SCH (08:11)
[2016-11-05 08:12] VITALS: BP 128/57; PULSE 63; RESP 18; TEMP 98.6; O2SAT 99
[2016-11-05] MEDS: CARVEDILOL 6.25 MG TAB PO SCH (08:13)
--- NOTE | 2016-11-05 11:22 | HHI.FF ---
Face to Face Verification Diagnosis: (1) Osteomyelitis of toe of right foot (2) Hypertension (3) CKD (chronic kidney disease), stage IV (4) ANEMIA, UNSPECIFIED (5) Acute kidney injury (6) Type 2 diabetes mellitus with diabetic neuropathy (7) Toe amputation status (8) Non-pressure chronic ulcer of other part of right foot with necrosis of bone (9) Diabetes Physical Therapy Order: Evaluate and Treat, Improve ambulation, Strength and gait training Home Health Nursing Order: Diabetic education Wound care and dressing changes Nursing assessment with vital signs I have seen patient Santy Rader on 11/05/16. My clinical findings support the need for the requested home health care services because: Ltd mobility - disease progression High risk of falls I certify that my clinical findings support that this patient is homebound because: Unsteady gait/balance Mlia Vinson Nov 05, 2016 11:22
--- NOTE | 2016-11-05 11:45 | HHI.PR ---
Subjective Subjective Remarks Sitting up in chair alert Appetite good in the 100% of his ADA diet pain post op lt. foot, improving, elevated most of the time in room Blood sugar normal ranges 70s this morning (Mila Vinson) Review of Systems Constitutional Constitutional: Fatigue Constitutional Remarks 10 point ROS done. fatique, mild, lt foot pain improving, diabetic with frequent blood sugar checks over the last 24 hours. Diabetic meds held, other systems negative (Mila Vinson) Musculoskeletal MS: Stiffness (lt foot surgery today) (Mila Vinson) Integumentary Skin: Wounds (lt foot rt. hallux amputation and first metatarsal head) (Mila Vinson) Psychiatric Psychiatric: Normal Mood (Mila Vinson) Vitals/Results Intake & Output 11/04/16 11/04/16 11/05/16 15:00 23:00 07:00 Intake Total 360 ml 480 ml Output Total 400 ml Balance -40 ml 480 ml Intake Oral 360 ml 480 ml Output Urine Total 400 ml # Voids 4 # Bowel Movements 0 Vital Signs Vital Signs Date Time Temp Pulse Resp B/P Pulse Ox O2 Delivery O2 Flow Rate FiO2 11/05/16 08:12 98.6 63 18 128/57 99 11/05/16 04:00 97.2 76 18 108/56 97 11/05/16 00:00 98.6 62 18 110/58 97 11/05/16 00:00 98.3 62 18 110/5 97 11/04/16 20:00 99.0 75 18 101/52 97 11/04/16 16:00 98.1 76 18 148/75 94 11/04/16 12:00 96.8 72 16 119/64 96 (Mila Vinson) CBC/BMP: 11/04/16 1123 11/04/16 0721 Imaging Remarks Last Impressions Foot X-Ray 11/03/16 0000 Signed Impressions: Service Date/Time: Thursday, November 03, 2016 08:52 - CONCLUSION: Status post first digit amputation. Van Arevalo MD Chest X-Ray 11/01/16 1557 Signed Impressions: Service Date/Time: October 16:20 - CONCLUSION: 1. No active disease. Minimal basilar scarring and atelectasis. Donald Sanderson MD Current Medications Active Medications Dextrose (D50w (Vial) Inj) 25 ml UNSCH PRN IV PUSH; Start 11/04/16 at 12:00 Glucagon (Glucagon Inj) 1 mg UNSCH PRN OTHER; Start 11/04/16 at 12:00 Insulin Aspart (NovoLOG SUPPLEMENTAL SCALE) 1 Q4HR SQ; Start 11/04/16 at 12:00 Miscellaneous Information SPECIFIC LAB TO BE OWEN... ONCE ONCE XX; Start at 14:45; Stop 11/04/16 at 14:46; Status Cancel (Mila VinsonP) Physical Exam General General Appearance: Well Developed, Well Nourished, No Acute Distress, Comfortable (Mila Vinson M. [employer] MA[employer]) Eyes Eye Exam: Pupils Equal, Pupils Reactive (AlissonMila boyce M. [employer]Y BAR MANAGER) Ears & Nose Ears & Nose Exam: Nasal Mucosa [place] (Mila Vinson. DA[employer] MANAGER) Throat Throat Exam: Oral Mucosa [place] & Moist (CamillaMila boyce M. DAIRY BAR MANAGER) Neck Neck Exam: Neck Supple, Trachea Midline (Mila Vinson M. [employer] MANAGER) Pulmonary Resp Exam: Clear Bilaterally, Breath Sounds Equal, No Distress (Mila Vinson M. [employer] BAR MANAGER) Cardiology CV Exam: Regular (Mila Vinson M. [employer] BAR MANAGER) Gastrointestinal/Abdomen GI Exam: Soft, Non-Tender, Bowel Sounds Present (Mila Vinson M. [employer] BAR MANAGER) Genitourinary Exam: Clear Urine (Mila Vinson. [employer] MA[employer]GER) Musculoskeletal MS Exam: Joints Intact MS Remarks new surgery post op, amputation hallux, and 1st metatarsal head, bulky dressing , foot elevated. No acute bleeding or hematoma, mild pain managed with by mouth meds (Mila Vinson M. [employer] MANAGER) Integumentary Skin Exam: Clear, Warm, Dry Skin Remarks see surgical notes (Mila Vinson M. [employer]Y BAR MANAGER) Extremeties Extremities Exam: Trace Edema (rt. LL) (Mila Vinson M. [employer]Y BAR MANAGER) Neurologic Neuro Exam: Alert, Awake, Oriented, Speech Clear, Moving All Extremities ( CamillaMila boyce) VTE Prophylaxis VTE Prophylaxis Device: SCDs VTE Remarks plavix (Mila Vinson) PUD Prophylasis PUD Remarks asa (Mila Vinson) Assessment/Plan Assessment/Plan 1. Osteomyelitis, left foot. Consult podiatry, Dr. Bang. Surgery 11/03/16 for left foot hallux amputation and 1 toe metatarsal head. Bulky drainage intact, left foot elevated. Post op care per Dr. Gamez., Patient states Dr. Bang told him that he could discharge today patient already has an outpatient appointment to see him at the end of the week. 2. Non-healing ischemic diabetic ulcer. Surgical procedure per Dr. Bang see above. Patient has been on IV fluids and IV antibiotics. Will discuss his transition for by mouth meds on discharge. Appreciate. Wound Care consult for their expert opinion. 3. Coronary artery disease. Medical management, no chest pain 4. Hypertension. BP normal ranges, taking by mouth meds per his home doses 5. Diabetes type 2 with long-term insulin use and diabetic neuropathy. Yesterday postop patient had mild hypoglycemia, symptomatic. Amaryl and insulin was held. Accu-Cheks were checked every 4 hours for the last 24 hours, this a.m. blood sugars in the 70s. Patient is eating 100% of his diet in the hospital, probably less calories than he is used to consuming. Discussed on discharge that patient will need to monitor blood sugars before taking insulin and gradually trend back in to his meds, he will need an appointment with his PCP on outpatient. 6. Chronic kidney disease. B UN stable at 16, mildly elevated creatinine level probably his baseline. 7. Anemia. Probably secondary to chronic disease, stable 8. Leukocytosis.\ Stable 9. HypoglycemiaPUD prophylaxis with Pepcid IV., No further hypoglycemic blood sugars over the past 24 hours. 76 and 70 this a.m. has not received any insulin. 8. DVT prophylaxis with aspirin, Plavix and Lovenox. Discharge planning in process probable home today or soon. (Mila Vinson) Assessment/Plan pt is seen & examined, chart reviewed d/w PT & his at bedside d/w iMla cleared by podiatry for dc on po abx wound c/s +e Klebsiella Pna , sensitivity noted urine c/s +ve Gardnerella Vag d/w DR Mcdaniel , she will review reports & will make her recommendations expect d/'c home w [facility] today will f/u (Sera Gutierrez MD) Mila Vinson Nov 05, 2016 11:45 Sera Gutierrez MD Nov 05, 2016 12:59
[2016-11-05 12:22] VITALS: BP 96/50; PULSE 66; RESP 18; TEMP 97; O2SAT 99
--- NOTE | 2016-11-05 13:02 | HHI.FF ---
Face to Face Verification Diagnosis: (1) Type 2 diabetes mellitus with foot ulcer (2) HTN (hypertension) (3) CAD (coronary artery disease) (4) Osteomyelitis of left foot (5) Osteomyelitis of toe of right foot (6) Ischemic ulcer diabetic foot (7) Diabetic nephropathy associated with type 2 diabetes mellitus Physical Therapy Order: Evaluate and Treat, Improve ambulation, Strength and gait training Home Health Nursing Order: Signs/symptoms of disease process Diabetic education Medication education-adverse effect Wound care and dressing changes I have seen patient Santy Rader on 11/05/16. My clinical findings support the need for the requested home health care services because: Ltd mobility - disease progression Deconditioned w/ increased weakness High risk of falls Infection w/ risk of complications I certify that my clinical findings support that this patient is homebound because: Post-op weakness Unsteady gait/balance Unsafe to leave home unassisted Sera Gutierrez MD Nov 05, 2016 13:02
[2016-11-05] MEDS ORDERED: OXYC-392 PO (13:06)
[2016-11-05] MEDS ORDERED: METR-1 PO (13:08)
[2016-11-05] MEDS ORDERED: LEVA250T PO (13:08)
--- NOTE | 2016-11-05 15:40 | HHI.IDPN ---
Subjective Subjective Remarks doing good no fever denies disuria sp amputation Antibiotics zosyn Allergies: Coded Allergies: No Known Allergies (Unverified , 11/01/16) Objective . Vital Signs Date Time Temp Pulse Resp B/P Pulse Ox O2 Delivery O2 Flow Rate FiO2 11/05/16 12:22 97.0 66 18 96/50 99 11/05/16 08:12 98.6 63 18 128/57 99 11/05/16 04:00 97.2 76 18 108/56 97 11/05/16 00:00 98.6 62 18 110/58 97 11/05/16 00:00 98.3 62 18 110/5 97 11/04/16 20:00 99.0 75 18 101/52 97 11/04/16 16:00 98.1 76 18 148/75 94 11/04/16 11/04/16 11/05/16 15:00 23:00 07:00 Intake Total 360 ml 480 ml Output Total 400 ml Balance -40 ml 480 ml Intake Oral 360 ml 480 ml Output Urine Total 400 ml # Voids 4 # Bowel Movements 0 . Laboratory Tests Test 11/04/16 11:23 White Blood Count 12.8 TH/MM3 Red Blood Count 2.63 MIL/MM3 Hemoglobin 8.1 GM/DL Hematocrit 24.3 % Mean Corpuscular Volume 92.5 FL Mean Corpuscular Hemoglobin 31.0 PG Mean Corpuscular Hemoglobin 33.5 % Concent Red Cell Distribution Width 15.9 % Platelet Count 410 TH/MM3 Mean Platelet Volume 7.7 FL Laboratory Tests Test 11/04/16 07:21 Sodium Level 135 MEQ/L Potassium Level 4.9 MEQ/L Chloride Level 100 MEQ/L Carbon Dioxide Level 27.5 MEQ/L Anion Gap 8 MEQ/L Blood Urea Nitrogen 16 MG/DL Creatinine 1.91 MG/DL Estimat Glomerular Filtration 34 ML/MIN Rate Random Glucose 53 MG/DL Calcium Level 8.8 MG/DL Imaging Last Impressions Foot X-Ray 11/03/16 0000 Signed Impressions: Service Date/Time: Thursday, November 03, 2016 08:52 - CONCLUSION: Status post first digit amputation. Van Arevalo MD Chest X-Ray 11/01/16 1557 Signed Impressions: Service Date/Time: October 16:20 - CONCLUSION: 1. No active disease. Minimal basilar scarring and atelectasis. Donald Sanderson MD Physical Exam CONSTITUTIONAL/GENERAL: This is an adequately nourished patient, in no apparent distress. TUBES/LINES/DRAINS: SKIN: No jaundice, rashes, or lesions. MUSCULOSKELETAL: Extremities without clubbing, cyanosis, + edema. STATUS LOCALIS L foot surg dressing in place Assessment & Plan Remarks Infected L 1 metatarsal wound with gangrene and osteo - Kleb pneumo DFI asyptomatic Gadnerella vaginalis bacteriuria There is no role for screening for or treating asymptomatic bacteriuria francis moe Levaquine 750 mg PO q 48 hrs; if GRF > 40 will need to change to q24 dw Dr Gutierrez : no need to treat pt's asymptomatic bacteriruia consider urology referral for hematuria Dilma Mcdaniel MD Nov 05, 2016 15:40
[2016-11-05] MEDS ORDERED: LEVA750T PO (16:05)
[2016-11-05] MEDS ORDERED: LEVOFLOXACIN 750 MG TAB PO SCH (17:00)
[2016-11-08] MEDS ORDERED: AUGM500T7 PO (11:39)
[2016-11-22] MEDS ORDERED: PROC20005 SQ (11:27)
[2016-11-29] MEDS ORDERED: BACT800T5 PO (11:24)
[2016-12-20] MEDS ORDERED: AUGM875T PO (11:05)
[2016-12-20] MEDS ORDERED: BACT800T5 PO (11:05)
--- NOTE | 2016-12-21 18:22 | HHI.DS ---
Discharge Summary Admission Date Nov 01, 2016 at 17:41 Discharge Date: Nov 05, 2016 Admitting Diagnosis osteomyelitis L foot with necrotic wound (1) Osteomyelitis of left foot (2) Diabetic nephropathy associated with type 2 diabetes mellitus (3) Type 2 diabetes mellitus with foot ulcer (4) Toe amputation status (5) Post-operative state (6) HTN (hypertension) (7) CAD (coronary artery disease) Procedures Surgery 11/03/16--Amputation of left hallux and first metatarsal head Imaging Last Impressions Foot X-Ray 11/03/16 0000 Signed Impressions: Service Date/Time: Thursday, November 03, 2016 08:52 - CONCLUSION: Status post first digit amputation. Van Arevalo MD Chest X-Ray 11/01/16 1557 Signed Impressions: Service Date/Time: October 16:20 - CONCLUSION: 1. No active disease. Minimal basilar scarring and atelectasis. Donald Sanderson MD Hospital Course This is a pleasant 76-year-old obese white male who has been dealing with multiple foot wounds and has been seen per Dr. Bang of podiatry on an outpatient basis. The patient has already had surgical procedures which include an amputation of his right great toe. He is now having non-healing wounds on his left foot for several months. The patient currently has a dressing on which has an odor noted and a serous bloody drainage. The patient was brought into the emergency room per Dr. Bang for a surgical excision of the first metatarsal bone versus amputation of the left hallux. He denied any chest pain. No shortness of breath. No nausea, vomiting, diarrhea or constipation. He denied any headache. No weight gain or weight loss in the past few months. He did note some decreased activity and mobility secondary to his multiple foot wound infections and surgical procedures. The patient denied any numbness or tingling in his extremities. Evaluated in the ED. IMAGING DATA Chest x-ray: Minimal basilar scarring and atelectasis. Foot x-ray: Abnormal distal first metatarsal and proximal phalangeal of the first digit, under-mineralization and areas of lucency. Nonspecific osteomyelitis could have this appearance there is dislocation versus subluxation of the first MTP joint. Questionable fracture involving the proximal aspect of the proximal phalangeal first digit. Diffuse left foot soft tissue swelling. Small vessel arterial calcification with a pattern typically seen in diabetics. Admitted with: 1. Osteomyelitis, left foot. 2. Non-healing ischemic diabetic ulcer. 3. Coronary artery disease. 4. Hypertension. 5. Diabetes type 2 with long-term insulin use and diabetic neuropathy. 6. Chronic kidney disease. 7. Anemia. 8. Leukocytosis. During the course of the hospitalization, the following took place: Consulted podiatry, Dr. Bang. Continued antibiotics. Cultures followed ID consulted. Accu-Cheks a.c. and h.s. with sliding scale insulin. PUD prophylaxis with Pepcid IV. DVT prophylaxis with aspirin, Plavix and Lovenox. Pt. had surgery on 11/03 Amputation of left hallux and first metatarsal head Wound care per podiatry. Continued on home meds Postop patient had mild hypoglycemia, symptomatic. Amaryl and insulin was held. Accu-Cheks were checked every 4 hours for the last 24 hours, the next day , blood sugars in the 70s. Patient was eating 100% of his diet in the hospital , probably less calories than he is used to consuming. Renal function was monitored. HH stable. Cultures positive for Klebsiella pneumonia, sensitivity noted Per iveth Russell for patient to go on oral antibiotics. No need for treating UTI, patient was asymptomatic. ID recommended outpatient follow-up with urology for hematuria. Patient was discharged home in stable condition with home health care Pt Condition on Discharge: Stable Discharge Disposition: Disch w/ Home Health Serv Discharge Instructions DIET: Follow Instructions for: Heart Healthy Diet, Diabetic Diet Fluid Restrictions: none Activities you can perform: Weight Bearing as Callie Other Activity Instructions: fall precautions Follow up Referrals: PCP Follow-up - 2 Weeks Podiatry - 2 Weeks New Medications: Oxycodone (Oxycodone) 5 Mg Tab 5 MG PO Q4H PRN PAIN SCALE 3 TO 5 #60 TAB Continued Medications: Aspirin DR (Aspirin 81) 81 Mg Tabdr 81 MG PO DAILY Ref 0 TAB Bumetanide (Bumex) 1 Mg Tab 1 MG PO DAILY fluid overload #30 Ref 0 TAB Carvedilol (Carvedilol) 6.25 Mg Tab 6.25 MG PO BID #60 Ref 0 TAB Clopidogrel (Plavix) 75 Mg Tab 75 MG PO DAILY Blood Clot Prevention #30 Ref 0 TAB Garlic (Garlic) 1,000 Mg Cap 1000 MG PO DAILY Insulin Aspart Inj (Novolog Inj) 100 Unit/Ml Inj 7 UNITS SQ TID Insulin Glargine Inj (Lantus Solostar Pen Inj) 300 Unit/3 Ml Pen 25 UNITS SQ HS Blood Sugar Management Ref 0 PEN Isosorbide Mononitrate ER (Isosorbide Mononitrate ER) 30 Mg Kimo 30 MG PO DAILY Prevent Chest Pain #30 Ref 0 TAB Lansoprazole (Lansoprazole) 30 Mg Capdr 30 MG PO DAILY Ref 0 CAP Levothyroxine (Synthroid) 50 Mcg Tab 50 MCG PO DAILY Thyroid #30 Ref 0 TAB Multiple Vitamin (Multi Vitamin) 1 Tab Tab 1 TAB PO DAILY TAB Potassium Chloride ER (K-Tab) 20 Meq Tab 20 MEQ PO DAILY Electrolyte Replacement #30 Ref 0 TAB Rosuvastatin (Crestor) 40 Mg Tab 40 MG PO DAILY Cholesterol Management #30 Ref 0 TAB Park Humphrey Dec 21, 2016 18:22
[2017-01-10] MEDS ORDERED: AUGM875T PO (11:31)
[2017-01-10] MEDS ORDERED: BACT800T5 PO (11:31)
== END 2016-11-05 17:14 | disposition home health service (06) | DRG 240 ==
LOC: NEPA 12:57 → NEDA 17:41 → NEDH 21:41 → N05A 11-02 14:32
PROVIDERS: ADMIT Specialist; ATTEND Specialist
PROC: 0Y6N0Z9 Detachment at Left Foot, Partial 1st Ray, Open Approach (ICD-10-PCS; principal; 2016-11-03 07:59)
DX: E11.52 Type 2 diabetes mellitus with diabetic peripheral angiopathy with gangrene (principal); M86.9 Osteomyelitis, unspecified; E11.22 Type 2 diabetes mellitus with diabetic chronic kidney disease; E11.42 Type 2 diabetes mellitus with diabetic polyneuropathy; E11.621 Type 2 diabetes mellitus with foot ulcer; L97.524 Non-pressure chronic ulcer of other part of left foot with necrosis of bone; I25.10 Atherosclerotic heart disease of native coronary artery without angina pectoris; E78.5 Hyperlipidemia, unspecified; E66.9 Obesity, unspecified; I12.9 Hypertensive chronic kidney disease with stage 1 through stage 4 chronic kidney disease, or unspecified chronic kidney disease; N18.9 Chronic kidney disease, unspecified; E11.649 Type 2 diabetes mellitus with hypoglycemia without coma; D63.8 Anemia in other chronic diseases classified elsewhere; E11.69 Type 2 diabetes mellitus with other specified complication; Z95.1 Presence of aortocoronary bypass graft; Z79.4 Long term (current) use of insulin; Z87.891 Personal history of nicotine dependence; Z68.33 Body mass index [BMI] 33.0-33.9, adult
CPT/HCPCS: 71010; 73630; 80048; 80053; 81001; 82948; 85025; 85027; 85610; 85730; 86403; 87040; 87070; 87077; 87086; 87186; 87205; 88304; 88305; 88311; 93005; 93923; 99212; G0463; J0131; J0295; J1650; J2405; J2543; J2710; J3010; J3370; J7040; J7050; L3260

== ENCOUNTER 2016-11-05 23:59 | Observation (INO) | payer MEDICARE, OTHER ==
[~2016-11-05] VITALS: Ht 170.2 cm; Wt 100.0 kg
[~2016-11-05 23:59] MED LIST changes: +LEVA250T PO; +LEVA750T PO; +METR-1 PO; +OXYC-392 PO
[2016-11-06 00:05] VITALS: BP 137/65; PULSE 70; RESP 16; TEMP 99.2; O2SAT 97
[2016-11-06 02:10] VITALS: BP 144/56; PULSE 69; RESP 16; O2SAT 96; O2SAT 97
[2016-11-06 02:48] LABS: AUTOMATED NEUTROPHIL # 7.9 TH/MM3 (1.8-7.7); BASOPHIL % 0.1 % (0.0-2.0); EOSINOPHIL # 0.2 TH/MM3 (0-0.4); HEMATOCRIT 23.7 % (39.0-51.0); HEMO FLAGS DIFF FINAL; LYMPH % 7.2 % (9.0-44.0); LYMPHOCYTE # 0.7 TH/MM3 (1.0-4.8); MEAN CELL VOLUME 91.8 FL (80.0-100.0); MEAN CORPUSCULAR HEMOGLOBIN 30.1 PG (27.0-34.0); MEAN CORPUSCULAR HGB CONC 32.8 % (32.0-36.0); MONO % 13.2 % (0.0-8.0); NEUT % 77.5 % (16.0-70.0); PLATELET COUNT 352 TH/MM3 (150-450); RED BLOOD COUNT 2.59 MIL/MM3 (4.50-5.90); RED CELL DISTRIBUTION WIDTH 15.5 % (11.6-17.2); WHITE BLOOD COUNT 10.3 TH/MM3 (4.0-11.0)
[2016-11-06 02:49] LABS: BLOOD, URINE SMALL (NEG); GLUCOSE,URINE NEG (NEG); KETONE, URINE NEG (NEG); NITRITE,URINE NEG (NEG); PH, URINE 5.5 (5.0-8.5)
[2016-11-06 02:56] LABS: POTASSIUM 4.5 MEQ/L (3.5-5.1)
[2016-11-06 02:57] LABS: URINE COLOR YELLOW (YELLW/STRAW)
[2016-11-06 02:58] LABS: RBC, URINE 0-3 /hpf (0-3); SQUAMOUS EPITHELIAL CELL URINE 0-5 /hpf (0-5)
[2016-11-06 02:59] LABS: BACTERIA, URINE OCC /hpf; COMMENT (UR) CULTURE INDICATED; CULTURE IF INDICATED CULTURE INDICATED
[2016-11-06] MEDS ORDERED: DEXTROSE 10% INJ 1,000 ML IV SCH (03:30)
[2016-11-06] MEDS ORDERED: DEXTROSE 50% IN WATER 50 ML VIAL(D50) IV PUSH ONE (03:30)
--- NOTE | 2016-11-06 03:33 | PD ---
HPI Chief Complaint: Abnormal Results Time Seen by Provider: 02:19 Travel History International Travel<30 days: No Contact w/Intl Traveler<30days: No Traveled to known affect area: No History of Present Illness HPI 76-year-old male diabetic presents to the emergency department for episodes of hypoglycemia. Patient recently admitted 11/01/16 for osteomyelitis of the left foot and left great toe and underwent indication of the great toe and first metatarsal head. Patient was noted to have episodes of hypoglycemia 11/04/16 and insulin/diabetic medications were held. Symptoms reportedly improved patient was felt to be stable for outpatient management after reportedly tolerating regular dietary intake. Patient reportedly was discharged to home around 5 PM. Reportedly at home he ate ice cream and cake. noted that his behavior seems to reflect him having some low blood sugars so checked his blood sugar and noted it to be in the 50s gave him orange juice and sugar several times but he continued to not improve his blood sugars so brought the patient to the hospital for further evaluation. Patient was noted to have hyperglycemia upon arrival to the emergency department and was administered is here. Patient voices no concerns or complaints. Patient reports that since being hospitalized he does not have the same appetite and has been eating less of his diabetic foods. No previous issues reportedly with dietary intake. No reported weight loss. No reported change in dosages of his current medications. PFSH Past Medical History Narrative Medical Arthritis, CABG, diabetes, recent amputation of left hallux and first metatarsal head, osteomyelitis, CAD, dyslipidemia, hypertension, hypothyroidism , chronic renal insufficiency, cataract surgery, tonsillectomy; tobacco use, occasional alcohol use; nursing notes reviewed Hx Anticoagulant Therapy: Yes Arthritis: Yes (FINGERS) Autoimmune Disease: No Cancer: No Cardiovascular Problems: Yes (CABG X3 2008) High Cholesterol: Yes Chest Pain: No Cerebrovascular Accident: No Coronary Artery Disease: Yes Diabetes: Yes (ON INSULIN) Patient Takes Glucophage: No Diminished Hearing: Yes (NULATO BILAT) Endocrine: No Gastrointestinal Disorders: No Glaucoma: No Genitourinary: No Headaches: No Hepatitis: No Hiatal Hernia: No Hypertension: Yes Immune Disorder: No Implanted Vascular Access Dvce: No Kidney Stones: Yes Musculoskeletal: Yes (ARTHRITIS) Neurologic: No Psychiatric: No Reproductive: No Respiratory: No Integumentary: Yes Migraines: No Renal Failure: Yes (chronic) Seizures: No Sickle Cell Disease: No Thyroid Disease: Yes (HYPOTHYROID) Tetanus Vaccination: Unknown Past Surgical History AICD: No Arteriovenous Shunt: No Cardiac Surgery: Yes (CABG X3 2009) Eye Surgery: Yes (CATARACT RIGHT EYE) Insulin Pump: No Joint Replacement: No Pacemaker: No Thoracic Surgery: Yes Tonsillectomy: Yes Other Surgery: Yes (r carpal tunnel) Social History Alcohol Use: Yes (occ) Tobacco Use: No (quit 1960) Substance Use: No Allergies-Medications (Allergen,Severity, Reaction): Coded Allergies: No Known Allergies (Unverified , 11/01/16) Reported Meds & Prescriptions Reported Meds & Active Scripts Active Levaquin (Levofloxacin) 750 Mg Tab 750 Mg PO Q48H Oxycodone (Oxycodone HCl) 5 Mg Tab 5 Mg PO Q4H PRN Bumex (Bumetanide) 1 Mg Tab 1 Mg PO DAILY Reported K-Tab (Potassium Chloride) 20 Meq Tab 20 Meq PO DAILY Plavix (Clopidogrel Bisulfate) 75 Mg Tab 75 Mg PO DAILY Garlic 1,000 Mg Cap 1,000 Mg PO DAILY Amaryl (Glimepiride) 4 Mg Tab 4 Mg PO DAILY Take with breakfast or first main meal Crestor (Rosuvastatin Calcium) 40 Mg Tab 40 Mg PO DAILY Isosorbide Mononitrate ER (Isosorbide Mononitrate) 30 Mg Kimo 30 Mg PO DAILY Aspirin 81 (Aspirin) 81 Mg Tabdr 81 Mg PO DAILY Carvedilol 6.25 Mg Tab 6.25 Mg PO BID Lantus Solostar Pen Inj (Insulin Glargine) 300 Unit/3 Ml Pen 25 Units SQ HS Multi Vitamin (Multiple Vitamin) 1 Tab Tab 1 Tab PO DAILY Novolog Inj (Insulin Aspart) 100 Unit/Ml Inj 7 Units SQ TID Synthroid (Levothyroxine Sodium) 50 Mcg Tab 50 Mcg PO DAILY Lansoprazole 30 Mg Capdr 30 Mg PO DAILY Review of Systems Except as stated in HPI: all other systems reviewed are Neg General / Constitutional: No: Fever, Chills HENT: No: Congestion Cardiovascular: No: Chest Pain or Discomfort Respiratory: No: Cough Gastrointestinal: No: Nausea, Vomiting, Abdominal Pain Genitourinary: No: Dysuria, Decreased Urinary Output Musculoskeletal: No: Myalgias, Arthralgias Skin: No Rash Neurologic: No: Weakness, Dizziness, Syncope Psychiatric: No: Anxiety Endocrine: No: Polyuria Hematologic/Lymphatic: No: Easy Bruising Physical Exam Narrative GENERAL: Well-developed well-nourished male in no acute distress no respiratory distress; GCS 15 SKIN: Warm and dry. HEAD: Normocephalic. EYES: No scleral icterus. No injection or drainage. NECK: Supple, trachea midline. No JVD or lymphadenopathy. CARDIOVASCULAR: Regular rate and rhythm without murmurs, gallops, or rubs. RESPIRATORY: Breath sounds equal bilaterally. No accessory muscle use. GASTROINTESTINAL: Abdomen soft, non-tender, nondistended. MUSCULOSKELETAL: No cyanosis, or edema. BACK: Nontender without obvious deformity. No CVA tenderness. Data Data Last Documented VS Vital Signs Date Time Temp Pulse Resp B/P Pulse Ox O2 Delivery O2 Flow Rate FiO2 11/06/16 03:35 74 16 140/58 98 Room Air 11/06/16 00:05 99.2 Orders Complete Blood Count With Diff (11/06/16 02:19) Magnesium (Mg) (11/06/16 02:19) Urinalysis - C+S If Indicated (11/06/16 02:19) Blood Glucose (11/06/16 02:19) Iv Access Insert/Monitor (11/06/16 02:19) Oximetry (11/06/16 02:19) NPO (11/06/16 02:19) Troponin I (11/06/16 02:19) Basic Metabolic Panel (Bmp) (11/06/16 02:19) Urine Culture (11/06/16 02:10) Dextrose 50% In José Miguel (Vial) Inj (D50w (Vi (11/06/16 03:30) Dextrose 10% Inj (D10w Inj) (11/06/16 03:30) Electrocardiogram (11/06/16 ) Admit Order (Ed Use Only) (11/06/16 ) ^ Saline Lock (11/06/16 03:37) Resp Oxygen Neymar C Titrat 1-4 L (11/06/16 ) ^ Notify Dr: Other (11/06/16 03:37) Sodium Chloride 0.9% Flush (Ns Flush) (11/06/16 09:00) Sodium Chloride 0.9% Flush (Ns Flush) (11/06/16 03:45) Labs Laboratory Tests Test 11/06/16 11/06/16 02:10 02:30 Urine Color YELLOW Urine Turbidity CLEAR Urine pH 5.5 Urine Specific [place] 1.006 Urine Protein TRACE mg/dL Urine Glucose (UA) NEG mg/dL Urine Ketones NEG mg/dL Urine Occult Blood SMALL Urine Nitrite NEG Urine Bilirubin NEG Urine Leukocyte Esterase SMALL Urine RBC 0-3 /hpf Urine WBC 3-5 /hpf Urine WBC Clumps RARE Urine Squamous Epithelial 0-5 /hpf Cells Urine Amorphous Sediment SMALL Urine Bacteria OCC /hpf Microscopic Urinalysis Comment CULTURE INDICATED White Blood Count 10.3 TH/MM3 Red Blood Count 2.59 MIL/MM3 Hemoglobin 7.8 GM/DL Hematocrit 23.7 % Mean Corpuscular Volume 91.8 FL Mean Corpuscular Hemoglobin 30.1 PG Mean Corpuscular Hemoglobin 32.8 % Concent Red Cell Distribution Width 15.5 % Platelet Count 352 TH/MM3 Mean Platelet Volume 7.9 FL Neutrophils (%) (Auto) 77.5 % Lymphocytes (%) (Auto) 7.2 % Monocytes (%) (Auto) 13.2 % Eosinophils (%) (Auto) 2.0 % Basophils (%) (Auto) 0.1 % Neutrophils # (Auto) 7.9 TH/MM3 Lymphocytes # (Auto) 0.7 TH/MM3 Monocytes # (Auto) 1.4 TH/MM3 Eosinophils # (Auto) 0.2 TH/MM3 Basophils # (Auto) 0.0 TH/MM3 CBC Comment DIFF FINAL Differential Comment Sodium Level 136 MEQ/L Potassium Level 4.5 MEQ/L Chloride Level 103 MEQ/L Carbon Dioxide Level 24.0 MEQ/L Anion Gap 9 MEQ/L Blood Urea Nitrogen 19 MG/DL Creatinine 2.00 MG/DL Estimat Glomerular Filtration 32 ML/MIN Rate Random Glucose 48 MG/DL Calcium Level 8.7 MG/DL Magnesium Level 1.8 MG/DL Troponin I 0.02 NG/ML MDM Medical Decision Making Medical Screen Exam Complete: Yes Emergency Medical Condition: Yes Medical Record Reviewed: Yes Interpretation(s) EKG normal sinus rhythm rate [address]-T changes no acute ST elevation CBC & BMP Diagram 11/06/16 02:30 Differential Diagnosis hypoglycemia, accidental insulin overdose/intolerance, acs, electrolyte disturbance Narrative Course upon ED arrival B, Specimens collected and sent for resulting patient administered oral hydration along with healthy choice meal Patient identified to have ongoing hypoglycemia @ 3:33 B --D50 and D10 infusion ordered; patient's case discussed with admitting M.Mercedes and admitted as to [facility] Critical Care Narrative Aggregate critical care time was 35 minutes. Time to perform other separately billable procedures was not included in the critical care time. My time did not include minutes spent treating any other patients simultaneously or on activities that did not directly contribute to the patient's treatment. The services I provided to this patient were to treat and/or prevent clinically significant deterioration that could result in: Arrhythmia,coma, I provided critical care services requiring my management, as noted below: Chart data review, documentation time, medication orders and management, vital sign assessments/reviewing monitor data, ordering and reviewing lab tests, ordering and interpreting/reviewing x-rays and diagnostic studies, care of the patient and discussion of the patient with the admitting physicians. Physician Communication Physician Communication case discussed with Tony Claros --admit to Dr Berg Diagnosis Primary Impression: Hypoglycemia associated with diabetes Additional Impressions: ANEMIA, UNSPECIFIED CKD (chronic kidney disease), stage IV Admitting Information Admitting Physician Requests: Observation Stephania Gannon MD Nov 06, 2016 03:33
[2016-11-06 03:35] VITALS: BP 140/58; PULSE 74; RESP 16; O2SAT 98
[2016-11-06 03:38] LABS: MAGNESIUM 1.8 MG/DL (1.5-2.5)
[2016-11-06] MEDS ORDERED: SODIUM CHLORIDE 0.9% FLUSH 5 ML FLUSH IVF PRN (03:45)
[2016-11-06] MEDS ORDERED: ACETAMINOPHEN 325 MG TAB PO PRN (04:00)
[2016-11-06] MEDS ORDERED: SODIUM CHLORIDE 0.9% FLUSH 5 ML FLUSH FLUSH PRN (04:00)
[2016-11-06] MEDS ORDERED: BISACODYL 10 MG SUPP PR PRN (04:00)
[2016-11-06] MEDS ORDERED: ONDANSETRON HCL 4 MG/2 ML VIAL IVP PRN (04:00)
[2016-11-06] MEDS ORDERED: NALOXONE HCL 0.4 MG/ML AMP IV PRN (04:00)
[2016-11-06] MEDS ORDERED: SENNOSIDES 8.6 MG TAB PO PRN (04:00)
[2016-11-06 05:30] VITALS: BP 133/62; PULSE 77; RESP 18; O2SAT 100
[2016-11-06 07:45] VITALS: BP 133/67; PULSE 73; RESP 16; TEMP 98.3; O2SAT 100
[2016-11-06] MEDS ORDERED: DEXTROSE 50% IN WATER 50 ML VIAL(D50) IV PUSH PRN (08:45)
[2016-11-06] MEDS ORDERED: LEVOFLOXACIN 750 MG TAB PO SCH (08:45)
[2016-11-06] MEDS ORDERED: GLUCAGON 1 MG/ML VIAL OTHER PRN (08:45)
[2016-11-06] MEDS ORDERED: MULTIVITAMIN TAB PO SCH (09:00)
[2016-11-06] MEDS ORDERED: HEPARIN SODIUM - SQ 10,000 UNITS/ML VIAL SQ SCH (09:00)
[2016-11-06] MEDS ORDERED: INSULIN ASPART SUPPLEMENTAL SCALE SQ SCH ×3 (09:00→11:00)
[2016-11-06] MEDS ORDERED: CARVEDILOL 6.25 MG TAB PO SCH (09:00)
[2016-11-06] MEDS ORDERED: CLOPIDOGREL 75 MG TAB PO SCH (09:00)
[2016-11-06] MEDS ORDERED: BUMETANIDE 1 MG TAB PO SCH (09:00)
[2016-11-06] MEDS ORDERED: ASPIRIN EC 81 MG TABEC PO SCH (09:00)
[2016-11-06] MEDS ORDERED: LEVOTHYROXINE SODIUM 50 MCG TAB PO SCH (09:00)
[2016-11-06] MEDS ORDERED: GARLIC 1000 MG PO SCH (09:00)
[2016-11-06] MEDS ORDERED: SODIUM CHLORIDE 0.9% FLUSH 5 ML FLUSH IVF SCH (09:00)
[2016-11-06] MEDS ORDERED: SODIUM CHLORIDE 0.9% FLUSH 5 ML FLUSH FLUSH SCH (09:00)
[2016-11-06] MEDS ORDERED: ISOSORBIDE MONONITRATE 30 MG TAB PO SCH (09:00)
[2016-11-06 09:30] VITALS: BP 145/70; PULSE 73; RESP 16; O2SAT 99
[2016-11-06] MEDS ORDERED: POTASSIUM CHLORIDE 20 MEQ CONTROLLED RELEASE TAB PO SCH (09:30)
[2016-11-06] MEDS ORDERED: ATORVASTATIN 80 MG TAB PO SCH (10:00)
[2016-11-06] MEDS ORDERED: PANTOPRAZOLE SOD 40 MG DELAYED RELEASE TAB PO SCH (10:00)
[2016-11-06] MEDS ORDERED: INSULIN GLARGINE 12 UNIT SQ SCH (21:00)
[2016-11-06] MEDS ORDERED: INSULIN GLARGINE 25 UNIT SQ SCH (21:00)
--- NOTE | 2016-11-07 20:35 | EKG ---
Date Performed: 11/06/2016 Time Performed: 03:47:24 PTAGE: 76 years EKG: Sinus rhythm Inferior/lateral ST-T changes are nonspecific Borderline ECG PREVIOUS TRACING : 11/01/2016 16.42 Compared to prior tracing no significant change DOCTOR: Jenelle Schwarz Interpretating Date/Time 11/07/2016 20:35:12
[2016-11-08] MEDS ORDERED: AUGM500T7 PO (11:39)
[2016-11-22] MEDS ORDERED: PROC20005 SQ (11:27)
[2016-11-29] MEDS ORDERED: BACT800T5 PO (11:24)
[2016-12-20] MEDS ORDERED: BACT800T5 PO (11:05)
[2016-12-20] MEDS ORDERED: AUGM875T PO (11:05)
[2017-01-10] MEDS ORDERED: BACT800T5 PO (11:31)
[2017-01-10] MEDS ORDERED: AUGM875T PO (11:31)
== END 2016-11-06 10:02 | disposition left against medical advice (07) ==
LOC: PHED 23:59 → PHEDA 11-06 03:39
PROVIDERS: ADMIT Specialist; ATTEND Specialist
DX: E11.649 Type 2 diabetes mellitus with hypoglycemia without coma (principal); Z95.1 Presence of aortocoronary bypass graft; I12.9 Hypertensive chronic kidney disease with stage 1 through stage 4 chronic kidney disease, or unspecified chronic kidney disease; N18.4 Chronic kidney disease, stage 4 (severe); I25.10 Atherosclerotic heart disease of native coronary artery without angina pectoris; E78.5 Hyperlipidemia, unspecified; E03.9 Hypothyroidism, unspecified; M19.90 Unspecified osteoarthritis, unspecified site; Z79.01 Long term (current) use of anticoagulants; E78.00 Pure hypercholesterolemia, unspecified; Z79.4 Long term (current) use of insulin; Z79.899 Other long term (current) drug therapy; D64.9 Anemia, unspecified
CPT/HCPCS: 80048; 81001; 83735; 84484; 85025; 87086; 93005; 96374; 96375; 99291; G0378